=== PATIENT | male | born 1950 | race Caucasian/White ===

== ENCOUNTER → 2016-07-14 | Outpatient (CLI) | payer BC ==
[~2016-07-14] MED LIST: ASPI-435 PO; CHOL2000 PO; DOCU100C31 PO; INSDGI SC; LISI-461 PO; MAGN400T6 PO; METF-384 PO; METO25TA56 PO; MULT-513 PO; OXYC-409 PO; PRAM0.129 PO; PRT/20 PO; SENN-61 PO; SIMV20TA5 PO; TRAM-453 PO; WARF1TAB6 PO; WARF5TAB7 PO
[2016-07-14 16:38] LABS: BASO % 0.3 %; BASO ABS # 0.01 K/uL (0-0.2); COMPLETE YES; HEMATOCRIT 37.6 % (42-52); LYMPH % 18.3 %; LYMPH ABS # 0.71 K/uL (1.2-3.4); MEAN PLATELET VOLUME 9.8 fL (7.4-10.4); MONO % 13.6 %; NEUT % 67.8 %; PLATELET COUNT 174 K/uL (130-400); RED BLOOD COUNT 4.13 M/uL (4.7-6.1); WHITE BLOOD COUNT 3.89 K/uL (4.8-10.8)
--- NOTE | 2016-07-14 16:44 | DIAGNOSTIC IMAGING REPORT ---
CHEST 2 VIEWS ROUTINE HISTORY: R05 [id number] Shortness of [id number] COMPARISON: Chest 03/25/2014. FINDINGS: There is a left-sided dual-chamber pacemaker. Post anatomy changes and 2 cardiac valve prostheses are noted. The heart is stable in size. The lungs are clear. No pleural effusions. No pneumothorax. IMPRESSION: No acute process. Electronically signed by: Shmuel Jasso M.D. 07/14/2016 4:42 PM Dictated Date/Time: 07/14/2016 4:41 PM
[2016-07-14 17:02] LABS: BLOOD UREA NITROGEN 18 mg/dl (7-18); BUN/CREATININE RATIO 16.5 (10-20); CARBON DIOXIDE 31 mmol/L (21-32); CHLORIDE 95 mmol/L (98-107); GLUCOSE 144 mg/dl (70-99); POTASSIUM 4.2 mmol/L (3.5-5.1); SODIUM 135 mmol/L (136-145)
== END ==
LOC: C.RAD1850 15:40
PROVIDERS: ATTEND Nurse Practitioner Family
DX: R05 Cough (principal); R06.02 Shortness of breath

== ENCOUNTER → 2017-06-28 | Outpatient (CLI) | payer BC ==
--- NOTE | 2017-06-28 12:22 | DIAGNOSTIC IMAGING REPORT ---
CHEST 2 VIEWS ROUTINE CLINICAL HISTORY: R05 [id number] Productive cough COMPARISON STUDY: 07/14/2016 FINDINGS: There are postsurgical changes of midline sternotomy and by valvular replacement. There is a left subclavian dual-chamber central venous pacemaker present. There is no failure. There is no focal pulmonary consolidation. There are no pleural effusions.[ IMPRESSION: No active disease in the chest. Electronically signed by: Rao Arreola M.D. 06/28/2017 12:21 PM Dictated Date/Time: 06/28/2017 12:20 PM
== END | disposition home or self-care (01) ==
LOC: C.RADBC 12:08
PROVIDERS: ATTEND Nurse Practitioner Adult Health
DX: R05 Cough (principal); R06.2 Wheezing

== ENCOUNTER → 2017-07-05 | Outpatient (CLI) | payer BC ==
[2017-07-05 12:19] LABS: BASO % 0.5 %; BASO ABS # 0.03 K/uL (0-0.2); EOS % 1.9 %; EOS ABS # 0.12 K/uL (0-0.5); HEMATOCRIT 37.1 % (42-52); HEMOGLOBIN 12.8 g/dL (14.0-18.0); IG# 0.05 K/uL (0.00-0.02); LYMPH % 27.8 %; LYMPH ABS # 1.76 K/uL (1.2-3.4); MEAN CELL VOLUME 92.5 fL (80-100); MEAN CORPUSCULAR HEMOGLOBIN 31.9 pg (25-34); MEAN CORPUSCULAR HGB CONC 34.5 g/dl (32-36); MEAN PLATELET VOLUME 9.6 fL (7.4-10.4); MONO % 8.9 %; MONO ABS # 0.56 K/uL (0.11-0.59); NEUT % 60.1 %; PLATELET COUNT 240 K/uL (130-400); RED CELL DISTRIBUTION WIDTH CV 13.9 % (11.5-14.5); RED CELL DISTRIBUTION WIDTH SD 45.9 fL (36.4-46.3); WHITE BLOOD COUNT 6.32 K/uL (4.8-10.8)
[2017-07-05 12:28] LABS: HEMOGLOBIN A1C 6.5 % (4.5-5.6)
[2017-07-05 13:40] LABS: ALBUMIN 3.8 gm/dl (3.4-5.0); ALT/SGPT 39 U/L (12-78); BLOOD UREA NITROGEN 15 mg/dl (7-18); CALCIUM 9.1 mg/dl (8.5-10.1); CARBON DIOXIDE 30 mmol/L (21-32); CREATININE 0.84 mg/dl (0.60-1.40); GLUCOSE 141 mg/dl (70-99); POTASSIUM 3.9 mmol/L (3.5-5.1); SODIUM 136 mmol/L (136-145)
[2017-07-05 13:43] LABS: ALKALINE PHOSPHATASE 47 U/L (45-117); AST/SGOT 52 U/L (15-37); TOTAL PROTEIN 6.8 gm/dl (6.4-8.2)
== END | disposition home or self-care (01) ==
LOC: C.LAB1850 09:59
PROVIDERS: ATTEND Nurse Practitioner Family
DX: D64.9 Anemia, unspecified (principal); E11.9 Type 2 diabetes mellitus without complications

== ENCOUNTER → 2018-01-22 | Outpatient (CLI) | payer BC ==
[~2018-01-22] MED LIST changes: +PRAM0.1212 PO; -PRAM0.129 PO
[2018-01-22 09:49] LABS: BASO % 0.2 %; BASO ABS # 0.01 K/uL (0-0.2); EOS % 2.8 %; EOS ABS # 0.12 K/uL (0-0.5); HEMATOCRIT 39.3 % (42-52); HEMOGLOBIN 13.2 g/dL (14.0-18.0); LYMPH % 31.9 %; LYMPH ABS # 1.39 K/uL (1.2-3.4); MEAN CELL VOLUME 93.1 fL (80-100); MEAN CORPUSCULAR HEMOGLOBIN 31.3 pg (25-34); MEAN CORPUSCULAR HGB CONC 33.6 g/dl (32-36); MEAN PLATELET VOLUME 10.7 fL (7.4-10.4); MONO ABS # 0.35 K/uL (0.11-0.59); NEUT % 57.1 %; NEUT ABS # 2.49 K/uL (1.4-6.5); PLATELET COUNT 187 K/uL (130-400); RED CELL DISTRIBUTION WIDTH CV 13.5 % (11.5-14.5); RED CELL DISTRIBUTION WIDTH SD 45.9 fL (36.4-46.3); WHITE BLOOD COUNT 4.36 K/uL (4.8-10.8)
[2018-01-22 10:15] LABS: BLOOD UREA NITROGEN 18 mg/dl (7-18); CREATININE 0.94 mg/dl (0.60-1.40); GLUCOSE 122 mg/dl (70-99)
[2018-01-22 10:16] LABS: ALBUMIN 3.9 gm/dl (3.4-5.0); ALKALINE PHOSPHATASE 40 U/L (45-117); ALT/SGPT 31 U/L (12-78); AST/SGOT 36 U/L (15-37); CALCIUM 8.5 mg/dl (8.5-10.1); CARBON DIOXIDE 30 mmol/L (21-32); CHOLESTEROL 138 mg/dl (0-200); LDL CHOLESTEROL CALCULATED 47 mg/dl; POTASSIUM 4.3 mmol/L (3.5-5.1); SODIUM 136 mmol/L (136-145); TOTAL PROTEIN 6.9 gm/dl (6.4-8.2)
== END | disposition home or self-care (01) ==
LOC: C.LAB1850 08:04
PROVIDERS: ATTEND Internal Medicine Interventional Cardiology
DX: I10 Essential (primary) hypertension (principal); E78.00 Pure hypercholesterolemia, unspecified; D50.9 Iron deficiency anemia, unspecified

== ENCOUNTER 2021-05-31 15:28 | Inpatient (IN) ==
[2021-05-31 17:27] LABS: Appearance Urine Clear (Clear); Basophils # (auto) 0.01 K/uL (0-0.2); Basophils % (auto) 0.1 %; Blood Urine Negative (Negative); Color Urine Dark Yellow; Eosinophils # (auto) 0.01 K/uL (0-0.5); Eosinophils % (auto) 0.1 %; Glucose Urine UA Negative (Negative); Hematocrit (blood only) 39.2 % (42-52); Hemoglobin 13.4 g/dL (14.0-18.0); Immature Granulocytes # (auto) 0.02 K/uL (0.00-0.02); Immature Granulocytes % (auto) 0.2 %; Ketones Urine Trace (Negative); Leukocyte Esterase Urine Negative (Negative); Lymphocytes # (auto) 1.12 K/uL (1.2-3.4); Mean Corpuscular Hemoglobin 30.8 pg (25-34); Mean Corpuscular Hgb Conc 34.2 g/dL (32-36); Mean Corpuscular Volume 90.1 fL (80-100); Monocytes # (auto) 0.04 K/uL (0.11-0.59); Monocytes % (auto) 0.4 %; Neutrophils # (auto) 9.95 K/uL (1.4-6.5); Neutrophils % (auto) 89.2 %; Nitrite Urine Negative (Negative); Platelet Count 256 K/uL (130-400); Protein Urine Negative (Negative); RDW Coefficient of Variation 13.3 % (11.5-14.5); RDW Standard Deviation 43.9 fL (36.4-46.3); Red Blood Count 4.35 M/uL (4.7-6.1); Specific Gravity Urine 1.014 (1.000-1.030); Urobilinogen Urine Negative (Negative); White Blood Count 11.15 K/uL (4.8-10.8)
[2021-05-31 17:30] LABS: Bilirubin Urine 2+ (Negative)
[2021-05-31 17:47] LABS: Partial Thromboplastin Ratio 1.8; Prothrombin Time > 90.0 Seconds (9.0-12.0)
[2021-05-31 17:50] LABS: INR > 10.7 (0.9-1.1); Partial Thromboplastin Time 47.3 Seconds (21.0-31.0)
[2021-05-31 17:55] LABS: Albumin Globulin Ratio 0.7 (0.9-2); Albumin Level 3.3 gm/dl (3.4-5.0); BUN Creatinine Ratio 17.1 (10-20); Bilirubin,Total 6.7 mg/dl (0.2-1); Calcium 9.4 mg/dl (8.5-10.1); Creatinine Clr Calc Pharmacy 68.8 ml/min; Est GFR (African American) 77.3 ml/min; Est GFR (Non-African American) 66.7 ml/min; Globulin 4.4 gm/dl (2.5-4.0); Potassium 3.9 mmol/L (3.5-5.1); Total Protein 7.7 gm/dl (6.4-8.2); Troponin I 0.172 ng/ml (0-0.045)
[2021-05-31] MEDS ORDERED: MoRPHine SULFATE 4 MG/ML 1 ML CARP\\VIAL IV STA (18:02)
[2021-05-31] MEDS ORDERED: SODIUM CHLORIDE 0.9% 1000ML 1,000 ML IV ONE (18:02)
[2021-05-31] MEDS ORDERED: ONDANSETRON INJ 2 MG/ML 2 ML VIAL IV STA (18:02)
[2021-05-31] MEDS ORDERED: OPTIRAY 320 100ml IV ONE (18:12)
[2021-05-31] MEDS ORDERED: SODIUM CHLORIDE 0.9% 1000ML 1,000 ML IV SCH (18:15)
--- NOTE | 2021-05-31 18:25 | CT Scan Report ---
ABDOMEN AND PELVIS CT WITH IV CONTRAST CT DOSE: 736.30 mGy.cm HISTORY: Elevated bilirubin. Right upper quadrant pain. TECHNIQUE: Multiaxial CT images of the abdomen and pelvis were performed following the use of intrave nous contrast. A dose lowering technique was utilized adhering to the principles of ALARA. COMPARISON STUDY: None. FINDINGS: There is a 1 mm nodule within the left lower lobe on image 5. This is of doubtful clinical significance. Poststernotomy changes. No fractures identified. Dense mitral annular calcifications wi th a mitral ring. Pacemaker wires are partially visualized. No hepatic or splenic masses. The adrenal glands unremarkable. There is a 7 mm exophytic hypodense lesion within the right kidney. This is sec ondary to small to characterize. Normal left kidney. No hydronephrosis. The main portal vein is paten t. Mild central intrahepatic bile duct dilatation. Common bile duct is also mildly distended up to 1 cm. There is a 7 mm stone at the distal common bile duct. The main pancreatic duct is normal in calib er. The gallbladder is distended. There is a thickened gallbladder wall with a large stone at the gal lbladder neck measuring 4 cm. There is mild pericholecystic inflammatory change. This consistent with an acute cholecystitis. There is also mild peripancreatic edema consistent with an acute pancreatiti s. No retroperitoneal lymphadenopathy. Mild calcified plaque within the normal caliber abdominal aort a. Mild bladder wall thickening. No pelvic free fluid. A few colonic diverticula. No evidence for acu te diverticulitis. No bowel wall thickening or obstruction. Normal appendix. IMPRESSION: 1. There is a 7 mm stone at the distal common bile duct resulting in mild bile duct dilatation. There is also distended gallbladder with a thickened wall and mild pericholecystic inflammatory change. Th erefore, this is consistent with an acute cholecystitis. Surgical consultation recommended. 2. There is also mild peripancreatic inflammatory change consistent with an acute pancreatitis. This is likely due to the common bile duct stone. 3. Cholelithiasis. 4. No bowel wall thickening or obstruction. 5. Mild bladder wall thickening. This could be due to a cystitis. Recommend correlation with urinalys is. ACT 112: Negative or not required by law. Electronically signed by: Shmuel Jasso M.D. 05/31/2021 6:24 PM
[2021-05-31] MEDS ORDERED: PHYTONADIONE 5 MG in SODIUM CHLORIDE 0.9% 50 ML IV ONE (18:35)
--- NOTE | 2021-05-31 18:53 | Surgery Consultation ---
Date of Consultation May 31, 2021 Assessment & Plan (1) Common bile duct obstruction: Patient with common bile duct obstruction from a 7 mm stone and pancreatitis with significantly elevated lipase He has gallbladder edema which likely does come from his common duct obstruction but also has a large stone Severely elevated PT/INR secondary to Coumadin and common duct obstruction Patient will be admitted and placed on IV antibiotics, likely stopping his anticoagulation temporarily He will require GI evaluation and likely ERCP At some point we will proceed with laparoscopic cholecystectomy History of Present Illness History of Present Illness 70-year-old male presenting the emergency room with very abnormal liver function studies who has had recent fever and chills and dark urine He has a very elevated total bilirubin of 6.7 lipase 19,425 severely elevated PT/INR CT scan shows common bile duct obstruction with a stone gallbladder distention with some edema large stone in the gallbladder History of pacemaker A. fib hypertension diabetes on Coumadin Allergies Allergy/AdvReac Type Severity Reaction Status Date / Time No Known Drug Allergies Allergy Verified 05/31/21 18:32 Home Medications Medication Instructions Recorded Confirmed Type acetaminophen 325 mg tablet 325 - 650 mg PO Q6H PRN tab 02/19/19 05/31/21 History ascorbic acid (vitamin C) 500 mg 500 mg PO BID #180 tab 02/19/19 05/31/21 History tablet ferrous sulfate 325 mg (65 mg 325 mg PO BID tab 02/19/19 05/31/21 History iron) tablet insulin syringe-needle U-100 0.3 #10 ea 03/10/19 05/30/21 History mL 31 gauge x 5/16" (UltiCare) amoxicillin 500 mg capsule 500 mg PO .COMPLEX PRN cap 07/22/19 05/31/21 History multivitamin (Multiple Vitamins) 1 tab PO QAM 07/22/19 05/31/21 History metoprolol tartrate 25 mg tablet 25 mg PO BID #180 tab 10/07/20 05/31/21 Rx flash glucose scanning reader #1 ea 11/23/20 05/30/21 Rx (FreeStyle Ulises 14 Day [place]) blood sugar diagnostic (TrackIFTouch #100 ea 12/30/20 05/30/21 Rx Ultra Test) blood-glucose meter (TrackIFTouch #1 ea 12/30/20 05/30/21 Rx Ultra2 Meter) lancets 30 gauge (OneTouch Delica #100 ea 12/31/20 05/30/21 Rx Lancets) warfarin 5 mg tablet 7.5 mg PO UD 01/05/21 05/31/21 History pen needle, diabetic 32 gauge x #200 ea 02/07/21 05/30/21 Rx 1/4" (UltiCare Pen Needle) pantoprazole 20 mg tablet,delayed 20 mg PO QAM #90 tab 03/09/21 05/31/21 Rx release dulaglutide 0.75 mg/0.5 mL 0.75 mg SQ WK #6 ml 03/18/21 05/31/21 Rx subcutaneous pen injector (Trulicity) magnesium oxide 400 mg (241.3 mg 400 mg PO BID #180 tab 03/21/21 05/31/21 Rx magnesium) tablet rosuvastatin 10 mg tablet 10 mg PO HS #90 tab 03/21/21 05/31/21 Rx flash glucose sensor (FreeStyle #1 ea 04/06/21 05/30/21 Rx Ulises 14 Day Sensor) cholecalciferol (vitamin D3) 50 2,000 unit PO QAM #90 tab 04/08/21 05/31/21 Rx mcg (2,000 unit) tablet lisinopril 20 mg tablet 20 mg PO BID #180 tab 04/08/21 05/31/21 Rx ketoconazole 2 % topical cream 1 applic TOP BID PRN #60 gm 05/17/21 05/31/21 Rx insulin glargine 100 unit/mL (3 30 unit SQ DAILY #15 ml 05/30/21 05/31/21 Rx mL) subcutaneous pen (Lantus Solostar U-100 Insulin) aspirin 81 mg tablet,delayed 81 mg PO DAILY 05/31/21 05/31/21 History release bromfenac 0.09 % eye drops 0 drp OPHTHALMIC (EYE) DAILY 05/31/21 05/31/21 History prednisolone acetate 1 % eye 0 drp OPHTHALMIC (EYE) DAILY 05/31/21 05/31/21 Hi story drops,suspension Patient History Medical History (Updated 05/31/21 @ 18:51 by Waldo Shell MD, FACS) Anticoagulant long-term use Anxiety Coronary arteriosclerosis Difficult intravenous access DM type 2 (diabetes mellitus, type 2) History of gout History of stroke 2 strokes during open heart surgery -- [facility] 2013; no residual effects HLD (hyperlipidemia) Hypertension Iron deficiency anemia Osteoarthritis Pacemaker 2013 [facility] - last checked jun or jul 2020 - bradycardia - follows with Dr. Marie Paroxysmal atrial fibrillation pt denies Restless leg syndrome Rheumatic heart disease Vitamin D deficiency Surgical History (Updated 05/30/21 @ 07:54 by Nia Purvis MD) Aortic valve replaced History of cardiac catheterization x 4 - no stents (most recent cath 2013 prior to valve replavcement surgery) History of carpal tunnel surgery of left wrist History of carpal tunnel surgery of right wrist History of colonoscopy History of esophagogastroduodenoscopy (EGD) History of open heart surgery 2013 History of resection of rib History of right cataract surgery Mechanical heart valve present Mitral valve replaced 2013 S/P trigger finger release mult Family History Mother Diabetes Lung cancer Hypertension Unknown Myocardial infarction Brother Myocardial infarction Grandfather (Maternal) Myocardial infarction Grandmother Diabetes Hypertension Father Stroke Other No family history of adverse response to anesthesia Denies family history of Ovarian cancer Prostate cancer Breast cancer Colorectal cancer Social History Smoking Status: Former smoker Tobacco Type: Cigarettes Age Started Using Tobacco: 16; Age Quit Using Tobacco: 33; packs per day: 1; Years Smoked: 17; Second Hand Exposure: No; Hx Alcohol Use: Yes Alcohol type: beer and hard liquor Alcohol Intake Frequency: 4 or More x per/Week Hx Substance Use: No Preferred Language: Scottish Communication Ability: Effective Visual Impairment: No Limitations Hearing Ability: Normal Bail Bond Agent Required: No Beliefs That Will Affect Care: None marital status: Current Living Situation: Spouse current occupational status: retired Feels Safe at Home: Yes Childhood Exposure to Second-Hand Smoke: Yes Dental Care, Regularly: Yes Physical Activity Frequency: 3-4 Times per Week Seatbelt Use: always Sunscreen Use: Yes Assistive Devices: Cane and Glasses Review of Systems Review of Systems: All systems reviewed & are unremarkable except as noted in HPI & below Physical Exam Physical Exam: Patient is awake and alert he is in no distress his affect is normal Constitutional: well developed and well nourished; no acute distress Eyes: + anicteric sclerae Respiratory: normal respiratory effort; no respiratory distress Cardiovascular: Rate/Rhythm: + irregularly irregular Chest (Breasts): Chest: + pacemaker Gastrointestinal (Abdomen): Inspection/Auscultation: + abdomen distended Mild discomfort to palpation Musculoskeletal: Head/Neck/Chest: head atraumatic Skin: no rashes, warm and dry Neurologic: awake Psychiatric: Orientation: alert Results & Data ([facility]) Vital Signs (Past 12 Hours) Vital Signs Temp Pulse Pulse Resp BP BP Pulse Ox 05/31/21 18:22 72 18 129/72 96 05/31/21 15:45 37.3 C 75 16 153/80 H 98 Laboratory Results I did review his laboratories Diagnostic Findings I did review his CAT scan PG Care Time/CCT Total # of Minutes Spent Total Time Spent with Patient: Total time spent is greater than 50% in coordination of care (as documented) at patient's floor/unit and/or counseling patient: Coding Level of Care Code 96144 Office/Outpt Visit, New Diagnoses Common bile duct obstruction K83.1
[2021-05-31] MEDS ORDERED: PIPERACILLIN/TAZOBACTAM 4.5 GM/120 ML BAG IV ONE (19:03)
[2021-05-31] MEDS ORDERED: PIPERACILL/TAZOBAC CONSULT ACTIVE PRN ×2 (19:03→23:50)
--- NOTE | 2021-05-31 19:03 | Emergency Department Note ---
History of Present Illness General Chief complaint: Abnormal Labs/Diagnostic Testing Stated complaint: Abnormal Labs Time Seen by Provider: 05/31/21 17:58 History of Present Illness Provider complaint: Abdominal pain Onset (ago): week(s) 1 Location: abdomen Radiation: non-radiation Severity: moderate Pain Consistency: + intermittent Maximum Pain Intensity: 6 Current Pain Intensity: 3 Quality: + stabbing, + aching, + sharp and + dull Relieved By: + none Exacerbated By: + none Associated symptoms: + nausea/vomiting; no fever/chills, no headaches or no shortness of breath 70-year-old male presents emergency department for abdominal pain. Patient symptoms are gone on for the last week. Patient denies any vomiting. He does report nausea. Patient also reports diarrhea. No melena or hematochezia. No fevers. Patient denies any falls. Patient is on Coumadin. Patient states he saw his PCP yesterday who did some blood work and told him to be referred to the emergency department due to the abnormal blood work. Home Medications Medication Instructions Recorded Confirmed Type acetaminophen 325 mg tablet 325 - 650 mg PO Q6H PRN tab 02/19/19 05/31/21 History ascorbic acid (vitamin C) 500 mg 500 mg PO BID #180 tab 02/19/19 05/31/21 Hist ory tablet ferrous sulfate 325 mg (65 mg 325 mg PO BID tab 02/19/19 05/31/21 History iron) tablet insulin syringe-needle U-100 0.3 #10 ea 03/10/19 05/30/21 History mL 31 gauge x 5/16" (UltiCare) amoxicillin 500 mg capsule 500 mg PO .COMPLEX PRN cap 07/22/19 05/31/21 History multivitamin (Multiple Vitamins) 1 tab PO QAM 07/22/19 05/31/21 History metoprolol tartrate 25 mg tablet 25 mg PO BID #180 tab 10/07/20 05/31/21 Rx flash glucose scanning reader #1 ea 11/23/20 05/30/21 Rx (FreeStyle Ulises 14 Day Townsend) blood sugar diagnostic (A-STARuch #100 ea 12/30/20 05/30/21 Rx Ultra Test) blood-glucose meter (Service2MediaTouch #1 ea 12/30/20 05/30/21 Rx Ultra2 Meter) lancets 30 gauge (OneTouch Delica #100 ea 12/31/20 05/30/21 Rx Lancets) warfarin 5 mg tablet 7.5 mg PO UD 01/05/21 05/31/21 History pen needle, diabetic 32 gauge x #200 ea 02/07/21 05/30/21 Rx 1/4" (UltiCare Pen Needle) pantoprazole 20 mg tablet,delayed 20 mg PO QAM #90 tab 03/09/21 05/31/21 Rx release dulaglutide 0.75 mg/0.5 mL 0.75 mg SQ WK #6 ml 03/18/21 05/31/21 Rx subcutaneous pen injector (Trulicity) magnesium oxide 400 mg (241.3 mg 400 mg PO BID #180 tab 03/21/21 05/31/21 Rx magnesium) tablet rosuvastatin 10 mg tablet 10 mg PO HS #90 tab 03/21/21 05/31/21 Rx flash glucose sensor (FreeStyle #1 ea 04/06/21 05/30/21 Rx Ulises 14 Day Sensor) cholecalciferol (vitamin D3) 50 2,000 unit PO QAM #90 tab 04/08/21 05/31/21 Rx mcg (2,000 unit) tablet lisinopril 20 mg tablet 20 mg PO BID #180 tab 04/08/21 05/31/21 Rx ketoconazole 2 % topical cream 1 applic TOP BID PRN #60 gm 05/17/21 05/31/21 Rx insulin glargine 100 unit/mL (3 30 unit SQ DAILY #15 ml 05/30/21 05/31/21 Rx mL) subcutaneous pen (Lantus Solostar U-100 Insulin) aspirin 81 mg tablet,delayed 81 mg PO DAILY 05/31/21 05/31/21 History release bromfenac 0.09 % eye drops 0 drp OPHTHALMIC (EYE) DAILY 05/31/21 05/31/21 History prednisolone acetate 1 % eye 0 drp OPHTHALMIC (EYE) DAILY 05/31/21 05/31/21 History drops,suspension Allergies Allergy/AdvReac Type Severity Reaction Status Date / Time No Known Drug Allergies Allergy Verified 05/31/21 18:32 Past Med/Surg History Medical History Anticoagulant long-term use Anxiety Coronary arteriosclerosis Difficult intravenous access DM type 2 (diabetes mellitus, type 2) History of gout History of stroke 2 strokes during open heart surgery -- [facility] 2013; no residual effects HLD (hyperlipidemia) Hypertension Iron deficiency anemia Osteoarthritis Pacemaker 2013 [facility] - last checked jun or jul 2020 - bradycardia - follows with Dr. Marie Paroxysmal atrial fibrillation pt denies Restless leg syndrome Rheumatic heart disease Vitamin D deficiency Surgical History Aortic valve replaced History of cardiac catheterization x 4 - no stents (most recent cath 2013 prior to valve replavcement surgery) History of carpal tunnel surgery of left wrist History of carpal tunnel surgery of right wrist History of colonoscopy History of esophagogastroduodenoscopy (EGD) History of open heart surgery 2013 History of resection of rib History of right cataract surgery Mechanical heart valve present Mitral valve replaced 2013 S/P trigger finger release mult Family History Mother Diabetes Lung cancer Hypertension Unknown Myocardial infarction Brother Myocardial infarction Grandfather (Maternal) Myocardial infarction Grandmother Diabetes Hypertension Father Stroke Other No family history of adverse response to anesthesia Denies family history of Ovarian cancer Prostate cancer Breast cancer Colorectal cancer Social History Smoking Status: Former smoker Tobacco Type: Cigarettes Age Started Using Tobacco: 16; Age Quit Using Tobacco: 33; packs per day: 1; Years Smoked: 17; Second Hand Exposure: No; Hx Alcohol Use: Yes Alcohol type: beer and hard liquor Alcohol Intake Frequency: 4 or More x per/Week Hx Substance Use: No Preferred Language: Scottish Communication Ability: Effective Visual Impairment: No Limitations Hearing Ability: Normal Hvac Mechanic Required: No Beliefs That Will Affect Care: None marital status: Current Living Situation: Spouse current occupational status: retired Feels Safe at Home: Yes Childhood Exposure to Second-Hand Smoke: Yes Dental Care, Regularly: Yes Physical Activity Frequency: 3-4 Times per Week Seatbelt Use: always Sunscreen Use: Yes Assistive Devices: Cane and Glasses Review of Systems A total of 10 systems reviewed and were otherwise negative Physical Exam Vital Signs Vital Signs - 24 hr 05/31/21 15:45 05/31/21 18:22 Temperature 37.3 C Temperature Source Temporal Artery Scan Pulse Rate 75 Pulse Rate [Apical] 72 Pulse Rhythm [Apical] Regular Pulse Strength [Apical] Normal Respiratory Rate 16 18 Respiratory Effort / Characteristics Non-Labored Non-Labored Spontaneous Respiratory Depth Normal Normal Blood Pressure 153/80 H Blood Pressure [Right Arm] 129/72 Blood Pressure Mean 104 Blood Pressure Mean [Right Arm] 91 Pulse Oximetry 98 96 Oxygen Delivery Method Room Air Sepsis Recent Fever Within 48 Hours No Sepsis New/Unexplained Change in Mental Status No Sepsis Action Taken by Nursing No Action Required Physical Exam HENT: Exam performed. - Head: Normocephalic and atraumatic. - Right Ear: External ear normal. No mastoid tenderness. - Left Ear: External ear normal. No mastoid tenderness. - Mouth/Throat: The oropharynx is clear and moist. No trismus in the jaw. No dental abscesses or uvula swelling. No oropharyngeal exudate or tonsillar abscesses. EYES: Conjunctivae and EOM are normal. Pupils are equal, round, and reactive to light. Right eye exhibits no discharge. Left eye exhibits no discharge. scleral icterus. NECK: Normal range of motion. Neck supple. No JVD present. No spinous process tenderness present. No carotid bruit present. No rigidity. No tracheal deviation and normal range of motion present. No Brudzinski's sign and no Kernig's sign noted. CV: Normal rate, regular rhythm, normal heart sounds and intact distal pulses. There is no peripheral edema. Palpable radial pulses bue. PULM/CHEST: Effort normal and breath sounds normal. No respiratory distress. No stridor. He has no wheezes. He has no rales. - Chest Wall: He exhibits no tenderness. ABD: The abdomen is soft. Bowel sounds are normal. He has no distension. No mass is present. There is tenderness to palpation of the epigastric area There is no rebound, no guarding, no Godoy's sign and no tenderness at McBurney's point. Rovsig negative. MUSC/SKEL: Normal range of motion. There is no peripheral edema, tenderness or deformity. LYMPH: No cervical adenopathy. NEURO: He is alert and oriented to person, place, and time. He has normal strength. No cranial nerve deficit or sensory deficit. Coordination and gait n ormal. GCS eye subscore is 4. GCS verbal subscore is 5. GCS motor subscore is 6. Cerebellar tests wnl. SKIN: Jaundiced. PSYCH: He has a normal mood and affect. Behavior is normal. Judgment and thought content normal. Course Course 1757: The patient was evaluated in room B3. A complete history and physical exam was performed Cardiac monitoring: An order was placed for continuous cardiac monitoring. The monitor shows a rate of 80 with paced rhythm Patient was seen during a time of extreme volume and extreme acuity during the COVID-19 pandemic. Nursing triage protocols were initiated and labs were drawn by protocol in the triage area. 1844: Vital signs stable. Labs show a white blood cell count of 11.15. Hemoglob in 13.4. INR greater than 10.7. Vitamin K 5 mg IV ordered for the patient. Sodium 130. AST/ALT 58/82 respectively. Alkaline phosphatase 285. Troponin 0 0.172. Patient denies chest pain at this time. Lipase 19,425. Urinalysis shows 2+ bilirubin. Imaging shows a 7 mm stone at the CBD resulting in mild bile duct dilatation and gallbladder thickened with pericholecystic inflammatory change consistent with acute cholecystitis. There is also acute pancreatitis likely due to CBD stone. Cholelithiasis. Discussed the case with general surgery Dr. Shell who agrees to be on consult and recommends that the patient be admitted to medicine with GI consult. Dr. [facility] hospitalist was made aware of the patient. Administered Medications Sodium Chloride (Nss 1000ml) 1,000 mls @ 999 mls/hr IV .Q1H1M ONE Stop: 05/31/21 19:02 Last Admin: 05/31/21 18:20 Dose: 999 mls/hr Documented by: [id number] Sodium Chloride (Nss 1000ml) 1,000 mls @ 80 mls/hr IV .[id number] NEIL Stop: 06/30/21 18:14 Last Admin: 05/31/21 18:21 Dose: 80 mls/hr Documented by: [id number] Phytonadione 5 mg/ Sodium (Chloride) 50.5 mls @ 101 mls/hr IV ONE ONE Stop: 05/31/21 19:04 Last Admin: 05/31/21 18:49 Dose: 101 mls/hr Documented by: [id number] Discontinued Medications Ioversol (Optiray 320 100ml) 94 ml IV ONCE ONE Stop: 05/31/21 18:13 Last Admin: 05/31/21 18:12 Dose: 94 ml Documented by: [id number] Morphine Sulfate (Morphine Sulfate 4 Mg/Ml 1 Ml Carp\\Vial) 4 mg IV NOW STA Stop: 05/31/21 18:03 Last Admin: 05/31/21 18:21 Dose: 4 mg Documented by: [id number] Ondansetron HCl (Ondansetron Inj 2 Mg/Ml 2 Ml Vial) 4 mg IV NOW STA Stop: 05/31/21 18:03 Last Admin: 05/31/21 18:21 Dose: 4 mg Documented by: [id number] Medical Decision Making Laboratory Data Result diagrams: 05/31/21 17:04 05/31/21 17:04 Lab Results 05/31/21 05/31/21 05/31/21 Range/Units 17:04 17:04 17:04 WBC 11.15 H (4.8-10.8) K/uL RBC 4.35 L (4.7-6.1) M/uL Hgb 13.4 L (14.0-18.0) g/dL Hct 39.2 L (42-52) % MCV 90.1 (80-100) fL MCH 30.8 (25-34) pg MCHC 34.2 (32-36) g/dL RDW Std Deviation 43.9 (36.4-46.3) fL RDW Coeff of Karan 13.3 (11.5-14.5) % Plt Count 256 (130-400) K/uL MPV 10.0 (7.4-10.4) fL Immature Gran % (Auto) 0.2 % Neut % (Auto) 89.2 % Lymph % (Auto) 10.0 % [place] % (Auto) 0.4 % Eos % (Auto) 0.1 % Baso % (Auto) 0.1 % Neut # (Auto) 9.95 H (1.4-6.5) K/uL Lymph # (Auto) 1.12 L (1.2-3.4) K/uL [place] # (Auto) 0.04 L (0.11-0.59) K/uL Eos # (Auto) 0.01 (0-0.5) K/uL Baso # (Auto) 0.01 (0-0.2) K/uL Immature Gran # (Auto) 0.02 (0.00-0.02) K/uL PT > 90.0 H (9.0-12.0) Seconds INR > 10.7 H* (0.9-1.1) APTT 47.3 H* (21.0-31.0) Seconds PTT Ratio 1.8 Sodium 130 L (136-145) mmol/L Potassium 3.9 (3.5-5.1) mmol/L Chloride 91 L (98-107) mmol/L Carbon Dioxide 27 (21-32) mmol/L Anion Gap 12.0 H (3-11) BUN 19 H (7-18) mg/dl Creatinine 1.12 (0.6-1.4) mg/dl Est Cr Clr Drug Dosing 68.8 ml/min Est GFR ( Amer) 77.3 ml/min Est GFR (Non-Af Amer) 66.7 ml/min BUN/Creatinine Ratio 17.1 (10-20) Glucose 250 H (70-99) mg/dl Calcium 9.4 (8.5-10.1) mg/dl Total Bilirubin 6.7 H (0.2-1) mg/dl AST 58 H (15-37) U/L ALT 82 H (12-78) Alkaline Phosphatase 285 H (45-117) U/L Troponin I 0.172 H* (0-0.045) ng/ml Total Protein 7.7 (6.4-8.2) gm/dl Albumin 3.3 L (3.4-5.0) gm/dl Globulin 4.4 H (2.5-4.0) gm/dl Albumin/Globulin Ratio 0.7 L (0.9-2) Lipase 41536 H (73-393) U/L Urine Color Urine Appearance (Clear) Urine pH (4.5-7.5) Ur Specific [place] (1.000-1.030) Urine Protein (Negative) Urine Glucose (UA) (Negative) Urine Ketones (Negative) Urine Blood (Negative) Urine Nitrite (Negative) Urine Bilirubin (Negative) Urine Urobilinogen (Negative) Ur Leukocyte Esterase (Negative) SARS-CoV-2, RNA, NAAT (NEGATIVE) 05/31/21 05/31/21 Range/Units 17:04 18:15 WBC (4.8-10.8) K/uL RBC (4.7-6.1) M/uL Hgb (14.0-18.0) g/dL Hct (42-52) % MCV (80-100) fL MCH (25-34) pg MCHC (32-36) g/dL RDW Std Deviation (36.4-46.3) fL RDW Coeff of Karan (11.5-14.5) % Plt Count (130-400) K/uL MPV (7.4-10.4) fL Immature Gran % (Auto) % Neut % (Auto) % Lymph % (Auto) % [place] % (Auto) % Eos % (Auto) % Baso % (Auto) % Neut # (Auto) (1.4-6.5) K/uL Lymph # (Auto) (1.2-3.4) K/uL [place] # (Auto) (0.11-0.59) K/uL Eos # (Auto) (0-0.5) K/uL Baso # (Auto) (0-0.2) K/uL Immature Gran # (Auto) (0.00-0.02) K/uL PT (9.0-12.0) Seconds INR (0.9-1.1) APTT (21.0-31.0) Seconds PTT Ratio Sodium (136-145) mmol/L Potassium (3.5-5.1) mmol/L Chloride (98-107) mmol/L Carbon Dioxide (21-32) mmol/L Anion Gap (3-11) BUN (7-18) mg/dl Creatinine (0.6-1.4) mg/dl Est Cr Clr Drug Dosing ml/min Est GFR ( Amer) ml/min Est GFR (Non-Af Amer) ml/min BUN/Creatinine Ratio (10-20) Glucose (70-99) mg/dl Calcium (8.5-10.1) mg/dl Total Bilirubin (0.2-1) mg/dl AST (15-37) U/L ALT (12-78) Alkaline Phosphatase (45-117) U/L Troponin I (0-0.045) ng/ml Total Protein (6.4-8.2) gm/dl Albumin (3.4-5.0) gm/dl Globulin (2.5-4.0) gm/dl Albumin/Globulin Ratio (0.9-2) Lipase (73-393) U/L Urine Color Dark Yellow Urine Appearance Clear (Clear) Urine pH 5.0 (4.5-7.5) Ur Specific [place] 1.014 (1.000-1.030) Urine Protein Negative (Negative) Urine Glucose (UA) Negative (Negative) Urine Ketones Trace H (Negative) Urine Blood Negative (Negative) Urine Nitrite Negative (Negative) Urine Bilirubin 2+ H (Negative) Urine Urobilinogen Negative (Negative) Ur Leukocyte Esterase Negative (Negative) SARS-CoV-2, RNA, NAAT NEGATIVE (NEGATIVE) Imaging Data Radiologist's Impression: Abdomen/Pelvis CT 05/31/21 16:[address] WITH IV CONTRAST CT DOSE: 736.30 mGy.cm HISTORY: Elevated bilirubin. Right upper quadrant pain. TECHNIQUE: Multiaxial CT images of the abdomen and pelvis were performed following the use of intravenous contrast. A dose lowering technique was utilized adhering to the principles of ALARA. COMPARISON STUDY: None. FINDINGS: There is a 1 mm nodule within the left lower lobe on image 5. This is of doubtful clinical significance. Poststernotomy changes. No fractures identified. Dense mitral annular calcifications with a mitral ring. Pacemaker wires are partially visualized. No hepatic or splenic masses. The adrenal glands unremarkable. There is a 7 mm exophytic hypodense lesion within the right kidney. This is secondary to small to characterize. Normal left kidney. No hydronephrosis. The main portal vein is patent. Mild central intrahepatic bile duct dilatation. Common bile duct is also mildly distended up to 1 cm. There is a 7 mm stone at the distal common bile duct. The main pancreatic duct is normal in caliber. The gallbladder is distended. There is a thickened gallbladder wall with a large stone at the gallbladder neck measuring 4 cm. There is mild pericholecystic inflammatory change. This consistent with an acute cholecystitis. There is also mild peripancreatic edema consistent with an acute pancreatitis. No retroperitoneal lymphadenopathy. Mild calcified plaque within the normal caliber abdominal aorta. Mild bladder wall thickening. No pelvic free fluid. A few colonic diverticula. No evidence for acute diverticulitis. No bowel wall thickening or obstruction. Normal appendix. IMPRESSION: 1. There is a 7 mm stone at the distal common bile duct resulting in mild bile duct dilatation. There is also distended gallbladder with a thickened wall and mild pericholecystic inflammatory change. Therefore, this is consistent with an acute cholecystitis. Surgical consultation recommended. 2. There is also mild peripancreatic inflammatory change consistent with an acute pancreatitis. This is likely due to the common bile duct stone. 3. Cholelithiasis. 4. No bowel wall thickening or obstruction. 5. Mild bladder wall thickening. This could be due to a cystitis. Recommend correlation with urinalysis. ACT 112: Negative or not required by law. Electronically signed by: Shmuel Jasso M.D. 05/31/2021 6:24 PM ECG Data Additional Comments: History ofEKG #1 at 1649: Paced rhythm with rate of 77. QRS 198 QTC 531. No ectopy. EKG #2 at 1841: Paced rhythm with a rate of 69. QRS 208 QTC 529. No ectopy. [facility] Narrative 1758: The patient was evaluated in room B3. A complete history and physical exam was performed Cardiac monitoring: An order was placed for continuous cardiac monitoring. The monitor shows a rate of 80 with paced rhythm Patient was seen during a time of extreme volume and extreme acuity during the COVID-19 pandemic. Nursing triage protocols were initiated and labs were drawn by protocol in the triage area. 1845: Vital signs stable. Labs show a white blood cell count of 11.15. Hemoglobin 13.4. INR greater than 10.7. Vitamin K 5 mg IV ordered for the patient. Sodium 130. AST/ALT 58/82 respectively. Alkaline phosphatase 285. Troponin 0 0.172. Patient denies chest pain at this time. Lipase 19,425. Urinalysis shows 2+ bilirubin. Imaging shows a 7 mm stone at the CBD resulting in mild bile duct dilatation and gallbladder thickened with pericholecystic inflammatory change consistent with acute cholecystitis. There is also acute pancreatitis likely due to CBD stone. Cholelithiasis. Discussed the case with general surgery Dr. Shell who agrees to be on consult and recommends that the patient be admitted to medicine with GI consult. Dr. [facility] hospitalist was made aware of the patient. Impression & Plan Choledocholithiasis, Acute cholecystitis, Acute gallstone pancreatitis Discharge Plan Visit Data Chief Complaint: Abnormal Labs/Diagnostic Testing Stated Complaint: Abnormal Labs Discharge Problem: Choledocholithiasis, Acute cholecystitis, Acute gallstone pancreatitis Patient Disposition: Admitted As Inpatient Forms Stand Alone Forms: [facility] Prescriptions Prescriptions: No Action metoprolol tartrate 25 mg tablet 25 mg PO BID Qty: 180 RF: 3 (DME) FreeStyle Ulises 14 Day Townsend Misc See Rx Instructions .MEDSUPPLY Qty: 1 RF: 0 (DME) OneTouch Ultra Test Strip See Rx Instructions .Route Qty: 100 RF: 5 (DME) blood-glucose meter [OneTouch Ultra2 Meter] Misc See Rx Instructions .Route Qty: 1 RF: 0 (DME) lancets [OneTouch Delica Lancets] 30 gauge misc See Dose Instructions .ROUTE .MEDSUPPLY Qty: 100 RF: 5 (DME) pen needle, diabetic [UltiCare Pen Needle] 32 gauge x 1/4" needle See Dose Instructions .ROUTE .MEDSUPPLY Qty: 200 RF: 1 pantoprazole 20 mg tablet,delayed release (DR/EC) 20 mg PO QAM Qty: 90 RF: 1 Trulicity 0.75 mg/0.5 mL pen injector 0.75 mg SQ WK Qty: 6 RF: 1 magnesium oxide 400 mg (241.3 mg magnesium) tablet 400 mg PO BID Qty: 180 RF: 1 rosuvastatin 10 mg tablet 10 mg PO HS Qty: 90 RF: 1 (DME) FreeStyle Ulises 14 Day Sensor Kit See Rx Instructions .MEDSUPPLY Qty: 1 RF: 0 lisinopril 20 mg tablet 20 mg PO BID Qty: 180 RF: 1 cholecalciferol (vitamin D3) 50 mcg (2,000 unit) tablet 2,000 unit PO QAM Qty: 90 RF: 0 ketoconazole 2 % cream 1 applic TOP BID PRN (Reason: rash) Qty: 60 RF: 5 Lantus Solostar U-100 Insulin 100 unit/mL (3 mL) insulin pen 30 unit SQ DAILY Qty: 15 RF: 1 ascorbic acid (vitamin C) 500 mg tablet 500 mg PO BID Qty: 180 RF: 0 ferrous sulfate 325 mg (65 mg iron) tablet 325 mg PO BID RF: 0 acetaminophen 325 mg tablet 325 - 650 mg PO Q6H PRN (Reason: fever or pain) RF: 0 (DME) insulin syringe-needle U-100 [UltiCare] 0.3 mL 31 gauge x 5/16" syringe See Dose Instructions .ROUTE .MEDSUPPLY Qty: 10 RF: 0 amoxicillin 500 mg capsule 500 mg PO .COMPLEX PRN (Reason: ud) RF: 0 multivitamin [Multiple Vitamins] Tablet 1 tab PO QAM RF: 0 aspirin 81 mg Tablet,Delayed Release (Dr/Ec) 81 mg PO DAILY RF: 0 prednisolone acetate 1 % drops,suspension 0 drp ophthalmic (eye) DAILY RF: 0 bromfenac 0.09 % drops 0 drp ophthalmic (eye) DAILY RF: 0 warfarin 5 mg tablet 7.5 mg PO UD RF: 0 Referrals Referrals: Efrain Arroyo III, CRNP [Primary Care Provider] -
--- NOTE | 2021-05-31 19:48 | History & Physical Report ---
Date of Service May 31, 2021 Assessment & Plan (1) Choledocholithiasis: Plan: -CBD stone confirmed on abdominal CT -Surgery and GI consultations made. Consults appreciated. -Pain currently controlled with morphine given in ED. Continue morphine q4h prn for pain -Zosyn given in ED, continue on admission -Given 1 liter NSS in ED, on maintenance IV NSS at 80 mls/hr -NPO after midnight -Follow CBC, CMP in AM (2) Acute cholecystitis: Plan: See above (3) Acute gallstone pancreatitis: Plan: See above (4) Common bile duct obstruction: Plan: See above (5) Elevated troponin: Plan: -Likely due to profusion mismatch -EKG showed ventricular paced rhythm -There were ST elevation and depression in various leads, however, Sgarbossa Criteria was 0 -Repeat serial trops q6h x3 (6) Supratherapeutic INR: Plan: -5 mg of Vitmamin K given in ED -Withhold Coumadin for likely procedure by surgery and GI -Recheck INR in AM (7) Diabetes mellitus: Plan: -Pt on Trulicity and Lantus 16 units AM, 14 units PM -Started lantus 8 units BID with SS -A1C in Novemeber was 6.8 -Repeat A1C in AM (8) Anticoagulant long-term use: Plan: -See Supratherapeutic INR above -Post procedures, INR goal is 2.5-3.5 due to valvular paroxysmal Afib (9) Hypertension: Plan: -Lisinopril held due to procedure tomorrow -Continue metoprolol (10) Paroxysmal atrial fibrillation: Plan: -Hold warfarin as above -Continue metoprolol -AICD in place Dispo: Med/Surg w/ Tele Diet: NPO DVT Prophylaxis: SCDs Code Status: Full History of Present Illness Chief Complaint: Abdominal Pain Primary Care Provider: Efrain Arroyo III, NKECHI Patient is a 70-year-old male with a past medical history of mechanical aortic and mitral heart valves, chronic anticoagulation on Coumadin, paroxysmal atrial fibrillation, AICD placed, DM 2, hypertension, and hyperlipidemia presenting to the hospital for the chief complaint of abdominal pain. Patient reports that for the past 1 to 2 weeks he has been having ongoing nausea, abdominal discomfort, fevers, chills, and acid reflux. Patient has gotten to the point that he was wrapping himself in a coat, under a blanket, and wear a scarf as his intermittent chills could not be relieved. He does report that he did have one episode 3 days ago of a fever of 103, however, this is the only time that he did have a fever. Patient has been taking upwards the 5 or 6 Tums to relieve acid reflux that he has been having. Patient thought that his symptoms were due to starting a long-acting nitro for angina a couple of weeks ago. For this reason patient had set up an appointment via telehealth with his primary care provider and had lab work ordered yesterday Lab work returned this morning and his primary care provider instructed him to go to the ED for abnormal labs. When the patient arrived he ultimately had an abdominal CT performed which revealed a stone blocking the common bile duct as well as pericholecystic inflammation suggestive of cholecystitis. Patient was placed on pain medication which has made him feel much better. Patient has no other complaints at this time. Allergies Allergy/AdvReac Type Severity Reaction Status Date / Time No Known Drug Allergies Allergy Verified 06/01/21 09:21 Home Medications Medication Instructions Recorded Confirmed Type acetaminophen 325 mg tablet 325 - 650 mg PO Q6H PRN tab 02/19/19 05/31/21 History ascorbic acid (vitamin C) 500 mg 500 mg PO BID #180 tab 02/19/19 05/31/21 History tablet ferrous sulfate 325 mg (65 mg 325 mg PO BID tab 02/19/19 05/31/21 History iron) tablet insulin syringe-needle U-100 0.3 #10 ea 03/10/19 05/30/21 History mL 31 gauge x 5/16" (UltiCare) amoxicillin 500 mg capsule 500 mg PO .COMPLEX PRN cap 07/22/19 05/31/21 History multivitamin (Multiple Vitamins) 1 tab PO QAM 07/22/19 05/31/21 History metoprolol tartrate 25 mg tablet 25 mg PO BID #180 tab 10/07/20 05/31/21 Rx flash glucose scanning reader #1 ea 11/23/20 05/30/21 Rx (FreeStyle Ulises 14 Day [place]) blood sugar diagnostic (WaveConnexTouch #100 ea 12/30/20 05/30/21 Rx Ultra Test) blood-glucose meter (OneTouch #1 ea 12/30/20 05/30/21 Rx Ultra2 Meter) lancets 30 gauge (OneTouch Delica #100 ea 12/31/20 05/30/21 Rx Lancets) warfarin 5 mg tablet 7.5 mg PO UD 01/05/21 05/31/21 History pen needle, diabetic 32 gauge x #200 ea 02/07/21 05/30/21 Rx 1/4" (UltiCare Pen Needle) pantoprazole 20 mg tablet,delayed 20 mg PO QAM #90 tab 03/09/21 05/31/21 Rx release dulaglutide 0.75 mg/0.5 mL 0.75 mg SQ WK #6 ml 03/18/21 05/31/21 Rx subcutaneous pen injector (Trulicity) magnesium oxide 400 mg (241.3 mg 400 mg PO BID #180 tab 03/21/21 05/31/21 Rx magnesium) tablet rosuvastatin 10 mg tablet 10 mg PO HS #90 tab 03/21/21 05/31/21 Rx flash glucose sensor (FreeStyle #1 ea 04/06/21 05/30/21 Rx Ulises 14 Day Sensor) cholecalciferol (vitamin D3) 50 2,000 unit PO QAM #90 tab 04/08/21 05/31/21 Rx mcg (2,000 unit) tablet lisinopril 20 mg tablet 20 mg PO BID #180 tab 04/08/21 05/31/21 Rx ketoconazole 2 % topical cream 1 applic TOP BID PRN #60 gm 05/17/21 05/31/21 Rx insulin glargine 100 unit/mL (3 30 unit SQ DAILY #15 ml 05/30/21 05/31/21 Rx mL) subcutaneous pen (Lantus Solostar U-100 Insulin) aspirin 81 mg tablet,delayed 81 mg PO DAILY 05/31/21 05/31/21 History release bromfenac 0.09 % eye drops 0 drp OPHTHALMIC (EYE) DAILY 05/31/21 05/31/21 History prednisolone acetate 1 % eye 0 drp OPHTHALMIC (EYE) DAILY 05/31/21 05/31/21 History drops,suspension Past Med/Surg History Medical History Anticoagulant long-term use Anxiety Coronary arteriosclerosis Difficult intravenous access DM type 2 (diabetes mellitus, type 2) History of gout History of stroke 2 strokes during open heart surgery -- [facility] 2013; no residual effects HLD (hyperlipidemia) Hypertension Iron deficiency anemia Osteoarthritis Pacemaker 2013 [facility] - last checked jun or jul 2020 - bradycardia - follows with Dr. Marie Paroxysmal atrial fibrillation pt denies Restless leg syndrome Rheumatic heart disease Vitamin D deficiency Surgical History Aortic valve replaced History of cardiac catheterization x 4 - no stents (most recent cath 2013 prior to valve replavcement surgery) History of carpal tunnel surgery of left wrist History of carpal tunnel surgery of right wrist History of colonoscopy History of esophagogastroduodenoscopy (EGD) History of open heart surgery 2013 History of resection of rib History of right cataract surgery Mechanical heart valve present Mitral valve replaced 2013 S/P trigger finger release mult Family History Mother Diabetes Lung cancer Hypertension Unknown Myocardial infarction Brother Myocardial infarction Grandfather (Maternal) Myocardial infarction Grandmother Diabetes Hypertension Father Stroke Other No family history of adverse response to anesthesia Denies family history of Ovarian cancer Prostate cancer Breast cancer Colorectal cancer Social History Smoking Status: Never smoker Tobacco Type: Cigarettes Age Started Using Tobacco: 16; Age Quit Using Tobacco: 33; packs per day: 1; Years Smoked: 17; Second Hand Exposure: No; Hx Alcohol Use: Yes Alcohol type: hard liquor Alcohol Intake Frequency: 4 or More x per/Week Hx Substance Use: No Preferred Language: [place] Communication Ability: Effective Visual Impairment: No Limitations Hearing Ability: Normal Superintendent Local Required: No Beliefs That Will Affect Care: None marital status: Current Living Situation: Spouse current occupational status: retired Other Information That Helps Us Care for You: No Feels Safe at Home: Yes Safety Concerns: Feels Safe At This Time Childhood Exposure to Second-Hand Smoke: Yes Dental Care, Regularly: Yes Physical Activity Frequency: 3-4 Times per Week Seatbelt Use: always Sunscreen Use: Yes Assistive Devices: None Review of Systems Review of Systems: All systems reviewed & are unremarkable except as noted in HPI & below Physical Exam Constitutional: well developed, well nourished, + obese and cooperative; no acute distress Eyes: + scleral abnormality (Scleral icterus bilaterally.) Neck: trachea midline, no thyromegaly Respiratory: normal respiratory effort, lungs clear to auscultation Cardiovascular: Rate/Rhythm: regular rate and regular rhythm Heart Sounds: no gallop, no murmur and no cardiac rub Palpation: normal PMI Vessels: no JVD Clicky S1 and S2. Gastrointestinal (Abdomen): Inspection/Auscultation: normal bowel sounds Percussion/Palpation: + abdomen tender (Tender to palpation of the right upper quadrant.) and abdomen soft Skin: no rashes, warm and dry + jaundice Neurologic: CN's II-XI intact bilaterally and moves all extremities Cranial Nerves: PERRL, normal accommodation, EOM intact bilaterally, normal facial strength, tongue midline and normal hearing Psychiatric: A+Ox3, euthymic affect Eye Contact: good eye contact Results & Data Results & Data ([facility]) Vital Signs (Past 12 Hours) Vital Signs Temp Pulse Pulse Resp BP BP Pulse Ox 05/31/21 18:22 72 18 129/72 96 05/31/21 15:45 37.3 C 75 16 153/80 H 98 Supervising Physician Co-Signing Physician Notes During face to face interview, a history and physical exam was obtained. Discussed case with Dr. Barnes Discussed plan of care and answered all of the patient's questions. Reviewed above note and agree with it. Patient will be admitted for choledocholithiasis. will be NPO, will need INR reversed. May need to placed on heparin after surgery as patient has had strokes in the past due to mechanical heart valves. Patient will get ERCP and cholecystectomy during this hospital stay. Hopefully tomorrow. Resident Activity Tracking Resident Involvement: Resident Care Provided Care Provided: Adult Hospital Medicine (1) Diabetes mellitus Diabetes mellitus complication detail: with polyneuropathy Diabetes mellitus complication status: with neurologic complications Diabetes mellitus watermaster insulin use: with fci use Diabetes mellitus type: type 2 Qualified Code(s): E11.42 - Type 2 diabetes mellitus with diabetic polyneuropathy; Z79.4 - assisted (current) use of insulin
[2021-05-31] MEDS ORDERED: POLYETHYLENE (MIRALAX) 17 GM PACK PO PRN (20:20)
[2021-05-31] MEDS ORDERED: ACETAMINOPHEN 325 MG TAB PO PRN (20:20)
[2021-05-31] MEDS ORDERED: ONDANSETRON INJ 2 MG/ML 2 ML VIAL IV PRN (20:20)
[2021-05-31] MEDS ORDERED: GLUCOSE 10 TABS/TUBE PO PRN (20:31)
[2021-05-31] MEDS ORDERED: CARBOHYDRATES FOR HYPOGLYCEMIA PO PRN (20:31)
[2021-05-31] MEDS ORDERED: DEXTROSE 50% 50 ML SYRINGE IV PRN (20:31)
[2021-05-31] MEDS ORDERED: GLUCOSE 40% GEL 15 GM TUBE PO PRN (20:31)
[2021-05-31] MEDS ORDERED: DC ALL PREVIOUSLY ORDERED DIABETES MEDS ONE (20:31)
[2021-05-31] MEDS ORDERED: GLUCAGON FOR INJ 1 MG VIAL SQ PRN (20:31)
[2021-05-31] MEDS ORDERED: MoRPHine SULFATE 4 MG/ML 1 ML CARP\\VIAL IV PRN (21:08)
[2021-05-31] MEDS: SODIUM CHLORIDE 0.9% 1000ML 1,000 ML IV SCH (21:35)
[2021-05-31] MEDS: MoRPHine SULFATE 2 MG/ML CARP IV PRN (21:43)
[2021-05-31] MEDS: INSULIN GLARGINE SOLOSTAR 100 UNITS/ML 3 ML PEN SC SCH (21:59)
[2021-05-31] MEDS: INSULIN ASPART PER UNIT SC SCH (22:00)
[2021-06-01] MEDS: PIPERACILLIN/TAZOBACTAM 3.375 GM in DEXTROSE 5% 100 ML IV SCH ×3 (01:47→22:31)
[2021-06-01] MEDS: ROSUVASTATIN CALCIUM 10 MG TAB PO SCH ×2 (01:47→21:53)
[2021-06-01] MEDS: METOPROLOL TARTRATE 25 MG TAB PO SCH ×3 (01:47→21:53)
[2021-06-01] MEDS: MoRPHine SULFATE 2 MG/ML CARP IV PRN ×3 (03:53→21:58)
[2021-06-01] MEDS ORDERED: diphenhydrAMINE 50 MG/ML VIAL IV STA (04:55)
[2021-06-01 05:56] LABS: Hematocrit (blood only) 33.2 % (42-52); Hemoglobin 11.1 g/dL (14.0-18.0); Mean Corpuscular Hemoglobin 29.9 pg (25-34); Mean Corpuscular Hgb Conc 33.4 g/dL (32-36); Mean Corpuscular Volume 89.5 fL (80-100); Mean Platelet Volume 9.8 fL (7.4-10.4); Platelet Count 193 K/uL (130-400); RDW Coefficient of Variation 13.4 % (11.5-14.5); Red Blood Count 3.71 M/uL (4.7-6.1); White Blood Count 5.13 K/uL (4.8-10.8)
[2021-06-01 06:42] LABS: Albumin Globulin Ratio 0.7 (0.9-2); Albumin Level 2.5 gm/dl (3.4-5.0); BUN Creatinine Ratio 18.9 (10-20); Bilirubin,Total 6.1 mg/dl (0.2-1); Calcium 8.9 mg/dl (8.5-10.1); Creatinine Clr Calc Pharmacy 78.5 ml/min; Est GFR (African American) 90.8 ml/min; Est GFR (Non-African American) 78.4 ml/min; Globulin 3.4 gm/dl (2.5-4.0); Potassium 3.5 mmol/L (3.5-5.1); Total Protein 5.9 gm/dl (6.4-8.2); Troponin I 0.184 ng/ml (0-0.045)
[2021-06-01 07:11] LABS: Estimated Average Glucose 154 mg/dl
[2021-06-01] MEDS ORDERED: LIDOCAINE 2% 2 ML VIAL/AMP(20MG/ML) INFIL ONE ×4 (07:49→08:45)
[2021-06-01] MEDS ORDERED: PROPOFOL IV EMULSION 10 MG/ML 20 ML VIAL IV ONE (07:49)
[2021-06-01] MEDS ORDERED: MIDAZOLAM HCL 1 MG/ML 2ML VIAL ONE (07:49)
[2021-06-01] MEDS ORDERED: ONDANSETRON INJ 2 MG/ML 2 ML VIAL ONE ×2 (07:49→08:45)
[2021-06-01] MEDS ORDERED: fentaNYL citrate 100 MCG/2 ML VIAL ONE (07:49)
[2021-06-01 08:18] LABS: INR 1.8 (0.9-1.1); Prothrombin Time 17.5 Seconds (9.0-12.0)
[2021-06-01] MEDS ORDERED: SUCCINYLCHOLINE CHLORIDE 20 MG/ML 10 ML VIAL IV ONE (08:45)
--- NOTE | 2021-06-01 08:57 | Gastrointestinal Consultation ---
Date of Consultation June 01, 2021 Assessment & Plan (1) Choledocholithiasis: 70 year old male w/ numerous chronic comorbidities admitted w/ abd pain, abnormal labs, concerning for retained biliary stones w/ biliary obstruction and pancreatitis . NPO LR 150-200 mL/hr Antiemetics PRN Analgesia PRN Hold Coumadin No NSAIDs Agree w/ IV ABX ERCP timing to be determined Appreciate general surgery consultation Thank you for allowing us to participate in the care of this patient. Please call with any acute changes, questions or concerns. Please see addendum below with additional recommendation from my supervising physician. Supervising Physician Co-Signing Physician Notes I saw and evaluated the patient. We were consulted for evaluation of new onset jaundice and choledocholithiasis. Patient has intermittent pain over the last 1 week and was admitted with significant elevation of his liver associated enzymes. CT scan the abdomen shows evidence of choledocholithiasis. Physical examination no obvious distress scleral icterus noted right upper quadrant tenderness noted Impression patient with choledocholithiasis initially presented with a significant elevation of his INR. Patient's INR is now less than 2 we will therefore proceed with ERCP for biliary decompression today. We have discussed the risks of the procedure to include bleeding, infection, perforation, pain, pancreatitis and the need for follow-up studies. Once the patient's ERCP is completed he should be reevaluated by general surgery to determine timing of cholecystectomy. Plan ERCP today avoid nonsteroidals and anticoagulation for 5 days please continue course of empiric antibiotics for total of 10 days History of Present Illness Reason for Consultation: elevated LFTs Requesting Physician: Nhi Attending Physician: Mike Hankins History of Present Illness 70 year old male with history of mechanical aortic and mitral heart valves, chronic anticoagulation on Coumadin, paroxysmal atrial fibrillation, AICD placed, DM 2, hypertension, and hyperlipidemia presenting to the hospital for the chief complaint of abdominal pain - GI asked to evaluate given elevated LFTs and abnormal imaging. Pt was seen and evaluated, chart reviewed. Notes abd pain x 1 week. Lower abd and right side. Severe stabbing and burning. Some nausea, no vomiting. Associated with intermittent fever, TMAX 103 a few days ago. Saw OP provider, was recommended ED for evaluation abnormal labs. INR 10 reversed to 1.8 TB 6 AST 46 ALT 63 ALKP 226 Trop .184 Lipase 2100 CTAP 2020: There is a 7 mm stone at the distal common bile duct resulting in mild bile duct dilatation. There is also distended gallbladder with a thickened wall and mild pericholecystic inflammatory change. Therefore, this is consistent with an acute cholecystitis. Surgical consultation recommended. 2. There is also mild peripancreatic inflammatory change consistent with an acute pancreatitis. This is likely due to the common bile duct stone. 3. Cholelithiasis. 4. No bowel wall thickening or obstruction. 5. Mild bladder wall thickening. This could be due to a cystitis. Recommend correlation with urinalysis. Allergies Allergy/AdvReac Type Severity Reaction Status Date / Time No Known Drug Allergies Allergy Verified 06/01/21 09:21 Home Medications Medication Instructions Recorded Confirmed Type acetaminophen 325 mg tablet 325 - 650 mg PO Q6H PRN tab 02/19/19 05/31/21 History ascorbic acid (vitamin C) 500 mg 500 mg PO BID #180 tab 02/19/19 05/31/21 History tablet ferrous sulfate 325 mg (65 mg 325 mg PO BID tab 02/19/19 05/31/21 History iron) tablet insulin syringe-needle U-100 0.3 #10 ea 03/10/19 05/30/21 History mL 31 gauge x 5/16" (UltiCare) amoxicillin 500 mg capsule 500 mg PO .COMPLEX PRN cap 07/22/19 05/31/21 History multivitamin (Multiple Vitamins) 1 tab PO QAM 07/22/19 05/31/21 History metoprolol tartrate 25 mg tablet 25 mg PO BID #180 tab 10/07/20 05/31/21 Rx flash glucose scanning reader #1 ea 11/23/20 05/30/21 Rx (FreeStyle Ulises 14 Day [place]) blood sugar diagnostic (OneTouch #100 ea 12/30/20 05/30/21 Rx Ultra Test) blood-glucose meter (OneTouch #1 ea 12/30/20 05/30/21 Rx Ultra2 Meter) lancets 30 gauge (OneTouch Delica #100 ea 12/31/20 05/30/21 Rx Lancets) warfarin 5 mg tablet 7.5 mg PO UD 01/05/21 05/31/21 History pen needle, diabetic 32 gauge x #200 ea 02/07/21 05/30/21 Rx 1/4" (UltiCare Pen Needle) pantoprazole 20 mg tablet,delayed 20 mg PO QAM #90 tab 03/09/21 05/31/21 Rx release dulaglutide 0.75 mg/0.5 mL 0.75 mg SQ WK #6 ml 03/18/21 05/31/21 Rx subcutaneous pen injector (Trulicity) magnesium oxide 400 mg (241.3 mg 400 mg PO BID #180 tab 03/21/21 05/31/21 Rx magnesium) tablet rosuvastatin 10 mg tablet 10 mg PO HS #90 tab 03/21/21 05/31/21 Rx flash glucose sensor (FreeStyle #1 ea 04/06/21 05/30/21 Rx Ulises 14 Day Sensor) cholecalciferol (vitamin D3) 50 2,000 unit PO QAM #90 tab 04/08/21 05/31/21 Rx mcg (2,000 unit) tablet lisinopril 20 mg tablet 20 mg PO BID #180 tab 04/08/21 05/31/21 Rx ketoconazole 2 % topical cream 1 applic TOP BID PRN #60 gm 05/17/21 05/31/21 Rx insulin glargine 100 unit/mL (3 30 unit SQ DAILY #15 ml 05/30/21 05/31/21 Rx mL) subcutaneous pen (Lantus Solostar U-100 Insulin) aspirin 81 mg tablet,delayed 81 mg PO DAILY 05/31/21 05/31/21 History release bromfenac 0.09 % eye drops 0 drp OPHTHALMIC (EYE) DAILY 05/31/21 05/31/21 History prednisolone acetate 1 % eye 0 drp OPHTHALMIC (EYE) DAILY 05/31/21 05/31/21 History drops,suspension Patient History Medical History Anticoagulant long-term use Anxiety Coronary arteriosclerosis Difficult intravenous access DM type 2 (diabetes mellitus, type 2) History of gout History of stroke 2 strokes during open heart surgery -- [facility] 2013; no residual effects HLD (hyperlipidemia) Hypertension Iron deficiency anemia Osteoarthritis Pacemaker [address] [facility] - last checked jun or jul 2020 - bradycardia - follows with Dr. Marie Paroxysmal atrial fibrillation pt denies Restless leg syndrome Rheumatic heart disease Vitamin D deficiency Surgical History Aortic valve replaced History of cardiac catheterization x 4 - no stents (most recent cath 2013 prior to valve replavcement surgery) History of carpal tunnel surgery of left wrist History of carpal tunnel surgery of right wrist History of colonoscopy History of esophagogastroduodenoscopy (EGD) History of open heart surgery 2013 History of resection of rib History of right cataract surgery Mechanical heart valve present Mitral valve replaced 2013 S/P trigger finger release mult Family History Mother Diabetes Lung cancer Hypertension Unknown Myocardial infarction Brother Myocardial infarction Grandfather (Maternal) Myocardial infarction Grandmother Diabetes Hypertension Father Stroke Other No family history of adverse response to anesthesia Denies family history of Ovarian cancer Prostate cancer Breast cancer Colorectal cancer Social History Smoking Status: Never smoker Tobacco Type: Cigarettes Age Started Using Tobacco: 16; Age Quit Using Tobacco: 33; packs per day: 1; Years Smoked: 17; Second Hand Exposure: No; Hx Alcohol Use: Yes Alcohol type: hard liquor Alcohol Intake Frequency: 4 or More x per/Week Hx Substance Use: No Preferred Language: [place] Leonean Communication Ability: Effective Visual Impairment: No Limitations Hearing Ability: Normal Stitcher Operator Required: No Beliefs That Will Affect Care: None marital status: Current Living Situation: Spouse current occupational status: retired Other Information That Helps Us Care for You: No Feels Safe at Home: Yes Safety Concerns: Feels Safe At This Time Childhood Exposure to Second-Hand Smoke: Yes Dental Care, Regularly: Yes Physical Activity Frequency: 3-4 Times per Week Seatbelt Use: always Sunscreen Use: Yes Assistive Devices: Glasses Review of Systems Review of Systems: All systems reviewed & are unremarkable except as noted in HPI & below Physical Exam Constitutional: WD/WN, vitals as above Respiratory: normal respiratory effort, lungs clear to auscultation Cardiovascular: Heart Sounds: normal S1 and normal S2 Gastrointestinal (Abdomen): Inspection/Auscultation: abdomen normal to inspection and normal bowel sounds; abdomen not distended Percussion/Palpation: abdomen soft; abdomen nontender and no guarding Skin: no rashes, warm and dry Results & Data ([facility]) Vital Signs (Past 12 Hours) Vital Signs Temp Pulse Resp BP Pulse Ox 06/01/21 03:59 36.8 C 63 20 142/73 H 97 05/31/21 22:30 60 12 123/70 96 05/31/21 22:00 62 13 111/57 L 96 05/31/21 21:00 60 17 135/56 L 94 Laboratory Results 06/01/21 06/01/21 06/01/21 Range/Units 07:37 05:45 05:45 WBC (4.8-10.8) K/uL RBC (4.7-6.1) M/uL Hgb (14.0-18.0) g/dL Hct (42-52) % MCV (80-100) fL MCH (25-34) pg MCHC (32-36) g/dL RDW Std Deviation (36.4-46.3) fL RDW Coeff of Karan (11.5-14.5) % Plt Count (130-400) K/uL MPV (7.4-10.4) fL Immature Gran % (Auto) % Neut % (Auto) % Lymph % (Auto) % Smith % (Auto) % Eos % (Auto) % Baso % (Auto) % Neut # (Auto) (1.4-6.5) K/uL Lymph # (Auto) (1.2-3.4) K/uL Smith # (Auto) (0.11-0.59) K/uL Eos # (Auto) (0-0.5) K/uL Baso # (Auto) (0-0.2) K/uL Immature Gran # (Auto) (0.00-0.02) K/uL PT 17.5 H (9.0-12.0) Seconds INR 1.8 H (0.9-1.1) APTT (21.0-31.0) Seconds PTT Ratio Sodium 132 L (136-145) mmol/L Potassium 3.5 (3.5-5.1) mmol/L Chloride 98 (98-107) mmol/L Carbon Dioxide 27 (21-32) mmol/L Anion Gap 7.0 (3-11) BUN 19 H (7-18) mg/dl Creatinine 0.98 (0.6-1.4) mg/dl Est Cr Clr Drug Dosing 78.5 ml/min Est GFR ( Amer) 90.8 ml/min Est GFR (Non-Af Amer) 78.4 ml/min BUN/Creatinine Ratio 18.9 (10-20) Glucose 143 H (70-99) mg/dl POC Glucose (70-99) mg/dl Estimat Average Glucose mg/dl Hemoglobin A1c (4.5-5.6) % Calcium 8.9 (8.5-10.1) mg/dl Total Bilirubin 6.1 H (0.2-1) mg/dl AST 46 H (15-37) U/L ALT 63 (12-78) Alkaline Phosphatase 226 H D (45-117) U/L Troponin I 0.184 H* (0-0.045) ng/ml Total Protein 5.9 L D (6.4-8.2) gm/dl Albumin 2.5 L (3.4-5.0) gm/dl Globulin 3.4 (2.5-4.0) gm/dl Albumin/Globulin Ratio 0.7 L (0.9-2) Lipase 2113 H (73-393) U/L Urine Color Urine Appearance (Clear) Urine pH (4.5-7.5) Ur Specific [place] (1.000-1.030) Urine Protein (Negative) Urine Glucose (UA) (Negative) Urine Ketones (Negative) Urine Blood (Negative) Urine Nitrite (Negative) Urine Bilirubin (Negative) Urine Urobilinogen (Negative) Ur Leukocyte Esterase (Negative) SARS-CoV-2, RNA, NAAT (NEGATIVE) 06/01/21 06/01/21 06/01/21 Range/Units 05:45 05:45 00:10 WBC 5.13 (4.8-10.8) K/uL RBC 3.71 L (4.7-6.1) M/uL Hgb 11.1 L (14.0-18.0) g/dL Hct 33.2 L (42-52) % MCV 89.5 (80-100) fL MCH 29.9 (25-34) pg MCHC 33.4 (32-36) g/dL RDW Std Deviation 44.0 (36.4-46.3) fL RDW Coeff of Karan 13.4 (11.5-14.5) % Plt Count 193 (130-400) K/uL MPV 9.8 (7.4-10.4) fL Immature Gran % (Auto) % Neut % (Auto) % Lymph % (Auto) % Smith % (Auto) % Eos % (Auto) % Baso % (Auto) % Neut # (Auto) (1.4-6.5) K/uL Lymph # (Auto) (1.2-3.4) K/uL Smith # (Auto) (0.11-0.59) K/uL Eos # (Auto) (0-0.5) K/uL Baso # (Auto) (0-0.2) K/uL Immature Gran # (Auto) (0.00-0.02) K/uL PT (9.0-12.0) Seconds INR (0.9-1.1) APTT (21.0-31.0) Seconds PTT Ratio Sodium (136-145) mmol/L Potassium (3.5-5.1) mmol/L Chloride (98-107) mmol/L Carbon Dioxide (21-32) mmol/L Anion Gap (3-11) BUN (7-18) mg/dl Creatinine (0.6-1.4) mg/dl Est Cr Clr Drug Dosing ml/min Est GFR ( Amer) ml/min Est GFR (Non-Af Amer) ml/min BUN/Creatinine Ratio (10-20) Glucose (70-99) mg/dl POC Glucose (70-99) mg/dl Estimat Average Glucose 154 mg/dl Hemoglobin A1c 7.0 H (4.5-5.6) % Calcium (8.5-10.1) mg/dl Total Bilirubin (0.2-1) mg/dl AST (15-37) U/L ALT (12-78) Alkaline Phosphatase (45-117) U/L Troponin I 0.187 H* (0-0.045) ng/ml Total Protein (6.4-8.2) gm/dl Albumin (3.4-5.0) gm/dl Globulin (2.5-4.0) gm/dl Albumin/Globulin Ratio (0.9-2) Lipase (73-393) U/L Urine Color Urine Appearance (Clear) Urine pH (4.5-7.5) Ur Specific [place] (1.000-1.030) Urine Protein (Negative) Urine Glucose (UA) (Negative) Urine Ketones (Negative) Urine Blood (Negative) Urine Nitrite (Negative) Urine Bilirubin (Negative) Urine Urobilinogen (Negative) Ur Leukocyte Esterase (Negative) SARS-CoV-2, RNA, NAAT (NEGATIVE) 05/31/21 05/31/21 05/31/21 Range/Units 21:50 18:15 17:04 WBC (4.8-10.8) K/uL RBC (4.7-6.1) M/uL Hgb (14.0-18.0) g/dL Hct (42-52) % MCV (80-100) fL MCH (25-34) pg MCHC (32-36) g/dL RDW Std Deviation (36.4-46.3) fL RDW Coeff of Karan (11.5-14.5) % Plt Count (130-400) K/uL MPV (7.4-10.4) fL Immature Gran % (Auto) % Neut % (Auto) % Lymph % (Auto) % Smith % (Auto) % Eos % (Auto) % Baso % (Auto) % Neut # (Auto) (1.4-6.5) K/uL Lymph # (Auto) (1.2-3.4) K/uL Smith # (Auto) (0.11-0.59) K/uL Eos # (Auto) (0-0.5) K/uL Baso # (Auto) (0-0.2) K/uL Immature Gran # (Auto) (0.00-0.02) K/uL PT (9.0-12.0) Seconds INR (0.9-1.1) APTT (21.0-31.0) Seconds PTT Ratio Sodium (136-145) mmol/L Potassium (3.5-5.1) mmol/L Chloride (98-107) mmol/L Carbon Dioxide (21-32) mmol/L Anion Gap (3-11) BUN (7-18) mg/dl Creatinine (0.6-1.4) mg/dl Est Cr Clr Drug Dosing ml/min Est GFR ( Amer) ml/min Est GFR (Non-Af Amer) ml/min BUN/Creatinine Ratio (10-20) Glucose (70-99) mg/dl POC Glucose 223 H (70-99) mg/dl Estimat Average Glucose mg/dl Hemoglobin A1c (4.5-5.6) % Calcium (8.5-10.1) mg/dl Total Bilirubin (0.2-1) mg/dl AST (15-37) U/L ALT (12-78) Alkaline Phosphatase (45-117) U/L Troponin I (0-0.045) ng/ml Total Protein (6.4-8.2) gm/dl Albumin (3.4-5.0) gm/dl Globulin (2.5-4.0) gm/dl Albumin/Globulin Ratio (0.9-2) Lipase (73-393) U/L Urine Color Dark Yellow Urine Appearance Clear (Clear) Urine pH 5.0 (4.5-7.5) Ur Specific [place] 1.014 (1.000-1.030) Urine Protein Negative (Negative) Urine Glucose (UA) Negative (Negative) Urine Ketones Trace H (Negative) Urine Blood Negative (Negative) Urine Nitrite Negative (Negative) Urine Bilirubin 2+ H (Negative) Urine Urobilinogen Negative (Negative) Ur Leukocyte Esterase Negative (Negative) SARS-CoV-2, RNA, NAAT NEGATIVE (NEGATIVE) 05/31/21 05/31/21 05/31/21 Range/Units 17:04 17:04 17:04 WBC 11.15 H (4.8-10.8) K/uL RBC 4.35 L (4.7-6.1) M/uL Hgb 13.4 L (14.0-18.0) g/dL Hct 39.2 L (42-52) % MCV 90.1 (80-100) fL MCH 30.8 (25-34) pg MCHC 34.2 (32-36) g/dL RDW Std Deviation 43.9 (36.4-46.3) fL RDW Coeff of Karan 13.3 (11.5-14.5) % Plt Count 256 (130-400) K/uL MPV 10.0 (7.4-10.4) fL Immature Gran % (Auto) 0.2 % Neut % (Auto) 89.2 % Lymph % (Auto) 10.0 % Smith % (Auto) 0.4 % Eos % (Auto) 0.1 % Baso % (Auto) 0.1 % Neut # (Auto) 9.95 H (1.4-6.5) K/uL Lymph # (Auto) 1.12 L (1.2-3.4) K/uL Smith # (Auto) 0.04 L (0.11-0.59) K/uL Eos # (Auto) 0.01 (0-0.5) K/uL Baso # (Auto) 0.01 (0-0.2) K/uL Immature Gran # (Auto) 0.02 (0.00-0.02) K/uL PT > 90.0 H (9.0-12.0) Seconds INR > 10.7 H* (0.9-1.1) APTT 47.3 H* (21.0-31.0) Seconds PTT Ratio 1.8 Sodium 130 L (136-145) mmol/L Potassium 3.9 (3.5-5.1) mmol/L Chloride 91 L (98-107) mmol/L Carbon Dioxide 27 (21-32) mmol/L Anion Gap 12.0 H (3-11) BUN 19 H (7-18) mg/dl Creatinine 1.12 (0.6-1.4) mg/dl Est Cr Clr Drug Dosing 68.8 ml/min Est GFR ( Amer) 77.3 ml/min Est GFR (Non-Af Amer) 66.7 ml/min BUN/Creatinine Ratio 17.1 (10-20) Glucose 250 H (70-99) mg/dl POC Glucose (70-99) mg/dl Estimat Average Glucose mg/dl Hemoglobin A1c (4.5-5.6) % Calcium 9.4 (8.5-10.1) mg/dl Total Bilirubin 6.7 H (0.2-1) mg/dl AST 58 H (15-37) U/L ALT 82 H (12-78) Alkaline Phosphatase 285 H (45-117) U/L Troponin I 0.172 H* (0-0.045) ng/ml Total Protein 7.7 (6.4-8.2) gm/dl Albumin 3.3 L (3.4-5.0) gm/dl Globulin 4.4 H (2.5-4.0) gm/dl Albumin/Globulin Ratio 0.7 L (0.9-2) Lipase 68751 H (73-393) U/L Urine Color Urine Appearance (Clear) Urine pH (4.5-7.5) Ur Specific [place] (1.000-1.030) Urine Protein (Negative) Urine Glucose (UA) (Negative) Urine Ketones (Negative) Urine Blood (Negative) Urine Nitrite (Negative) Urine Bilirubin (Negative) Urine Urobilinogen (Negative) Ur Leukocyte Esterase (Negative) SARS-CoV-2, RNA, NAAT (NEGATIVE)
--- NOTE | 2021-06-01 09:46 | Anesthesiology Consultation ---
Date of Service June 01, 2021 Assessment & Plan Chart Review Chart Review: Acceptable Risk for Surgery and Patient NOT seen in Pre Admission Testing Consults Requested none ASA [id number] Proposed Anesthesia Anesthesia Type: General Risk / Benefits Reviewed With: PT / POA / Parent / Guardian, Accepts Plan and Informed Consent Obtained Additional Comments: covid test neg. History Surgery Operation Date: 06/01/21 12:00 Proposed Procedures p Endoscopic Retrograde Cholangiopancreatogram - Chantal Wheeler DO Height/Weight Height: 5 ft 7 in Weight: 96 kg Allergies Allergy/AdvReac Type Severity Reaction Status Date / Time No Known Drug Allergies Allergy Verified 06/01/21 09:21 Medications Home Medications Medication Instructions Recorded Confirmed Last Taken acetaminophen 325 mg tablet 325 - 650 mg PO Q6H PRN tab 02/19/19 05/31/21 05/29/21 ascorbic acid (vitamin C) 500 mg 500 mg PO BID #180 tab 02/19/19 05/31/21 05/31/21 tablet ferrous sulfate 325 mg (65 mg 325 mg PO BID tab 02/19/19 05/31/21 05/31/21 iron) tablet insulin syringe-needle U-100 0.3 #10 ea 03/10/19 05/30/21 Unknown mL 31 gauge x 5/16" (UltiCare) amoxicillin 500 mg capsule 500 mg PO .COMPLEX PRN cap 07/22/19 05/31/21 05/31/21 multivitamin (Multiple Vitamins) 1 tab PO QAM 07/22/19 05/31/21 05/31/21 metoprolol tartrate 25 mg tablet 25 mg PO BID #180 tab 10/07/20 05/31/21 05/31/21 flash glucose scanning reader #1 ea 11/23/20 05/30/21 Unknown (FreeStyle Ulises 14 Day [place]) blood sugar diagnostic (OneTouch #100 ea 12/30/20 05/30/21 Unknown Ultra Test) blood-glucose meter (OneTouch #1 ea 12/30/20 05/30/21 Unknown Ultra2 Meter) lancets 30 gauge (OneTouch Delica #100 ea 12/31/20 05/30/21 05/31/21 Lancets) warfarin 5 mg tablet 7.5 mg PO UD 01/05/21 05/31/21 05/31/21 pen needle, diabetic 32 gauge x #200 ea 02/07/21 05/30/21 05/31/21 1/4" (UltiCare Pen Needle) pantoprazole 20 mg tablet,delayed 20 mg PO QAM #90 tab 03/09/21 05/31/21 05/31/21 release dulaglutide 0.75 mg/0.5 mL 0.75 mg SQ WK #6 ml 03/18/21 05/31/21 05/31/21 subcutaneous pen injector (Trulicity) magnesium oxide 400 mg (241.3 mg 400 mg PO BID #180 tab 03/21/21 05/31/21 05/31/21 magnesium) tablet rosuvastatin 10 mg tablet 10 mg PO HS #90 tab 03/21/21 05/31/21 05/30/21 flash glucose sensor (FreeStyle #1 ea 04/06/21 05/30/21 Unknown Ulises 14 Day Sensor) cholecalciferol (vitamin D3) 50 2,000 unit PO QAM #90 tab 04/08/21 05/31/21 05/31/21 mcg (2,000 unit) tablet lisinopril 20 mg tablet 20 mg PO BID #180 tab 04/08/21 05/31/21 05/31/21 ketoconazole 2 % topical cream 1 applic TOP BID PRN #60 gm 05/17/21 05/31/21 05/31/21 insulin glargine 100 unit/mL (3 30 unit SQ DAILY #15 ml 05/30/21 05/31/21 05/31/21 mL) subcutaneous pen (Lantus Solostar U-100 Insulin) aspirin 81 mg tablet,delayed 81 mg PO DAILY 05/31/21 05/31/21 05/31/21 release bromfenac 0.09 % eye drops 0 drp OPHTHALMIC (EYE) DAILY 05/31/21 05/31/21 Unk nown prednisolone acetate 1 % eye 0 drp OPHTHALMIC (EYE) DAILY 05/31/21 05/31/21 Unknown drops,suspension Active Medications Generic Name Dose Route Start Last Admin Trade Name Freq PRN Reason Stop Dose Admin Sodium Chloride 1,000 mls @ 80 mls/hr 05/31/21 20:45 06/01/21 09:19 Nss 1000ml IV 06/30/21 20:44 Infused .[id number] NEIL Infusion Piperacillin Sod/Tazobactam 115 mls @ 28.75 mls/hr 06/01/21 00:00 06/01/21 09:19 Sod 3.375 gm/ Dextrose IV 06/11/21 00:00 Infused Q8H NEIL Infusion Protocol Insulin Aspart 0 units 05/31/21 21:00 05/31/21 22:00 Insulin Aspart Per Unit SC 06/30/21 20:59 2 units ACHS NEIL Administration Insulin Glargine 8 units 05/31/21 21:00 05/31/21 21:59 Insulin Glargine Solostar 100 Units/Ml 3 Ml Pen SC 06/30/21 20:59 8 units BID NEIL Administration Metoprolol Tartrate 25 mg 05/31/21 23:50 06/01/21 01:47 Metoprolol Tartrate 25 Mg Tab PO 06/30/21 23:49 25 mg BID NEIL Administration Morphine Sulfate 2 mg 05/31/21 21:08 06/01/21 03:53 Morphine Sulfate 2 Mg/Ml Carp IV 06/14/21 21:07 2 mg Q4H PRN Administration Pain (1,2,3,4,5) & Pre PT Rosuvastatin Calcium 10 mg 05/31/21 23:50 06/01/21 01:47 Rosuvastatin Calcium 10 Mg Tab PO 06/30/21 23:49 10 mg HS NEIL Administration NPO Date Last Intake of Fluids: 05/31/21 Time Last Intake of Fluids: 23:55 Last Intake of Fluids Comment: sip of water at 0700 with meds this am Date Last Intake of Solids: 05/31/21 Time Last Intake of Solids: 12:00 Past Medical History Medical History Anticoagulant long-term use Anxiety Coronary arteriosclerosis Difficult intravenous access DM type 2 (diabetes mellitus, type 2) History of gout History of stroke 2 strokes during open heart surgery -- [facility] 2013; no residual effects HLD (hyperlipidemia) Hypertension Iron deficiency anemia Osteoarthritis Pacemaker 2013 [facility] - last checked jun or jul 2020 - bradycardia - follows with Dr. Marie Paroxysmal atrial fibrillation pt denies Restless leg syndrome Rheumatic heart disease Vitamin D deficiency Exercise / Class Metabolic Activity III < 4 Walking/Shop/Light housework Past Family History Family History Mother Diabetes Lung cancer Hypertension Unknown Myocardial infarction Brother Myocardial infarction Grandfather (Maternal) Myocardial infarction Grandmother Diabetes Hypertension Father Stroke Other No family history of adverse response to anesthesia Denies family history of Ovarian cancer Prostate cancer Breast cancer Colorectal cancer Past Surgical History Surgical History Aortic valve replaced History of cardiac catheterization x 4 - no stents (most recent cath 2013 prior to valve replavcement surgery) History of carpal tunnel surgery of left wrist History of carpal tunnel surgery of right wrist History of colonoscopy History of esophagogastroduodenoscopy (EGD) History of open heart surgery 2013 History of resection of rib History of right cataract surgery Mechanical heart valve present Mitral valve replaced 2013 S/P trigger finger release mult Past Anesthesia History No Hx of Anesthesia Complications and No Family Hx of Anesthesia Complications History of PONV No Hx of PONV and No Hx of Motion Sickness Social History Smoking Status: Never smoker tobacco type: cigarettes Hx Alcohol Use: Yes Alcohol type: hard liquor alcohol intake frequency: a few times a month Hx Substance Use: No substance use type: marijuana Physical Exam Vital Signs Last Vital Signs Temp 37 C 06/01/21 09:21 Pulse 70 06/01/21 09:21 Resp 20 06/01/21 09:21 BP 169/81 H 06/01/21 09:21 Pulse Ox 97 06/01/21 09:21 Constitutional + obese ENMT Mouth: no dentition abnormality Thyromental Distance: > or= 3.5 Finger Breadths Mallampati Class: II Neck normal visual inspection, trachea midline and + facial hair; neck extension not limited Respiratory normal respiratory effort Auscultation: + diminished lung sounds Cardiovascular Rate/Rhythm: regular rate and regular rhythm Heart Sounds: no murmur Vessels: no carotid bruit Chest (Breasts) Chest: + pacemaker (lt. sub clav) Musculoskeletal Spine: normal cervical ROM Neurologic moves all extremities Motor/Sensory: no sensory deficit Psychiatric Orientation: alert and oriented x 3 Testing Laboratory Results 06/01/21 05:45 06/01/21 05:45 PT 17.5 Seconds (9.0-12.0) H 06/01/21 07:37 INR 1.8 (0.9-1.1) H 06/01/21 07:37 APTT 47.3 Seconds (21.0-31.0) H* 05/31/21 17:04 Hemoglobin A1c 7.0 % (4.5-5.6) H 06/01/21 05:45 Urine Color Dark Yellow 05/31/21 17:04 Urine Appearance Clear (Clear) 05/31/21 17:04 Urine pH 5.0 (4.5-7.5) 05/31/21 17:04 Ur Specific [place] 1.014 (1.000-1.030) 05/31/21 17:04 Urine Protein Negative (Negative) 05/31/21 17:04 Urine Glucose (UA) Negative (Negative) 05/31/21 17:04 Urine Ketones Trace (Negative) H 05/31/21 17:04 Urine Nitrite Negative (Negative) 05/31/21 17:04 Ur Leukocyte Esterase Negative (Negative) 05/31/21 17:04 05/31/21 21:50 POC Glucose 223 H Electrocardiogram Date: 05/31/21 Findings: + pertinent finding (v paced at 70)
[2021-06-01] MEDS ORDERED: INDOMETHACIN 50 MG SUPP PR ONE ×2 (10:13→10:24)
--- NOTE | 2021-06-01 10:13 | History & Physical Bridge Note ---
Date of Service June 01, 2021 History & Physical Bridge Note I have examined the patient, reviewed the History & Physical and in the interval since the performance of the History & Physical I have noted the following changes of clinical significance: no changes noted
[2021-06-01] MEDS ORDERED: DEXAMETHASONE SOD INJ 4 MG/ML VIAL ONE (10:34)
[2021-06-01] MEDS ORDERED: PHENYLEPHRINE 100MCG/ML 5ML SYR ONE (10:35)
[2021-06-01] MEDS ORDERED: PHENYLEPHRINE HCL 10 MG/ML VIAL ONE (10:55)
--- NOTE | 2021-06-01 11:15 | Post Operative Brief Note ---
Immediate Post Op Note v1 Date of Surgery June 01, 2021 Pre & Post Diagnosis Operation Date: 06/01/21 12:00 Pre-Op Diagnosis: Cholelithiasis Post-Op Diagnosis: Cholelithiasis, cholangitis I identified the patient and participated in the time-out.: Yes Procedure Operation Date: 06/01/21 12:00 Actual Procedures p Endoscopic Retrograde Cholangiopancreatography with Stent Placement, GallStone Retraction(Not Applicable) - Chantal Wheeler DO Surgeon Chantal Wheeler DO Embedded Software Design Engineer None Estimated Blood Loss 0 Findings Consistent with Post-Op Diagnosis
--- NOTE | 2021-06-01 11:17 | Communication Note ---
Date of Service: June 01, 2021 The patient underwent ERCP this morning. The ERCP was notable for sludge and stone material within the bulb in addition to pus consistent with cholangitis. A biliary sphincterotomy was performed in 2 biliary stents were placed. Recommendations May have clear liquids, continue IV hydration, continue antibiotic coverage, await surgical input for cholecystectomy timing. Please avoid use of nonsteroidals for 1 week.
[2021-06-01] MEDS ORDERED: PROMETHAZINE HCL 12.5 MG in SODIUM CHLORIDE 0.9% 50 ML IV PRN (11:18)
[2021-06-01] MEDS ORDERED: ATROPINE SULFATE 0.1 MG/ML 10ML SYR IV PRN (11:18)
[2021-06-01] MEDS ORDERED: ePHEDrine sulfate 50 MG/ML AMP IV PRN (11:18)
[2021-06-01] MEDS ORDERED: FLUMAZENIL 0.1 MG/1 ML 10 ML VIAL IV PRN (11:18)
[2021-06-01] MEDS ORDERED: LABETALOL HCL IV 5 MG/ML 20ML IV PRN (11:18)
[2021-06-01] MEDS ORDERED: NALOXONE HCL 0.4 MG/1 ML VIAL/CARP IV PRN (11:18)
[2021-06-01] MEDS ORDERED: ONDANSETRON INJ 2 MG/ML 2 ML VIAL IV PRN (11:18)
--- NOTE | 2021-06-01 11:21 | GI REPORT ---
Patient Name: Bud Patton Procedure Date: 06/01/2021 10:27 AM Date of : 1950 Admit Type: Inpatient Age: 70 Gender: Male Attending MD: Chantal Wheeler DO Procedure: ERCP Providers: Chantal Wheeler DO Referring MD: Momo Benavides Indications: Abdominal pain of suspected biliary origin, Bile duct stone on Computed Tomogram Scan, Elevated liver enzymes Medicines: General Anesthesia Complications: No immediate complications. Estimated blood loss: Minimal. Estimated Blood Loss: Estimated blood loss was minimal. Procedure: Pre-Anesthesia Assessment: - Prior to the procedure, a History and Physical was performed, and patient medications, allergies and sensitivities were reviewed. The patient's tolerance of previous anesthesia was reviewed. - The risks and benefits of the procedure and the sedation options and risks were discussed with the patient. All questions were answered and informed consent was obtained. - Patient identification and proposed procedure were verified prior to the procedure by the physician, the nurse and the material requisitioner. The procedure was verified in the procedure room. - Pre-procedure physical examination revealed no contraindications to sedation. - ASA Grade Assessment: III - A patient with severe systemic disease. - After reviewing the risks and benefits, the patient was deemed in satisfactory condition to undergo the procedure. - The anesthesia plan was to use general anesthesia. - Immediately prior to administration of medications, the patient was re-assessed for adequacy to receive sedatives. - The heart rate, respiratory rate, oxygen saturations, blood pressure, adequacy of pulmonary ventilation, and response to care were monitored throughout the procedure. - The physical status of the patient was re-assessed after the procedure. After obtaining informed consent, the scope was passed under direct vision. Throughout the procedure, the patient's blood pressure, pulse, and oxygen saturations were monitored continuously. The Duodenoscope was introduced through the mouth, and advanced to the duodenum and used to inject contrast into the bile duct. The ERCP was accomplished without difficulty. The patient tolerated the procedure well. Findings: The kelp gatherer film was normal. The esophagus was successfully intubated under direct vision without detailed examination of the pharynx, larynx, and associated structures, and upper GI tract. The upper GI tract was grossly normal. The major papilla was normal. The bile duct was deeply cannulated with the short-nosed traction sphincterotome and guidewire. Contrast was injected. I personally interpreted the bile duct images. Contrast extended to the hepatic ducts. The lower third of the main bile duct contained filling defect(s) thought to be a stone. Biliary sphincterotomy was made with a Fusion OMNI sphincterotome using ERBE electrocautery. There was no post-sphincterotomy bleeding. To discover objects, the biliary tree was swept with a 15 mm balloon starting at the bifurcation. Sludge was swept from the duct. One stone was removed. No stones remained. Pus was swept from the duct. Two 7 Fr by 7 and a 4 cm biliary stents with a full external pigtail and a full internal pigtail were placed into the common bile duct. Bile and pus flowed through the stents. The stents were in good position. The endoscope was withdrawn from the patient. Indomethacin 100 mg was given via suppository to decrease the risk of post-ERCP pancreatitis (PEP). Impression: - The major papilla appeared normal. - A filling defect consistent with a stone was seen on the cholangiogram. - Choledocholithiasis was found. Complete removal was accomplished by biliary sphincterotomy and balloon extraction. - A biliary sphincterotomy was performed. - The biliary tree was swept and pus was found. - Two biliary stents were placed into the common bile duct. - Indomethacin given to decrease risk of post-ERCP pancreatitis. Recommendation: - Avoid aspirin and nonsteroidal anti-inflammatory medicines for 1 week. - Clear liquid diet. - Use broad spectrum antibiotics for 2 weeks. - Repeat ERCP in 6 weeks to remove stent. Chantal Wheeler D.O. Chantal Wheeler, 06/01/2021 11:20:43 AM This report has been signed electronically. Note Initiated On: 06/01/2021 10:27 AM Number of Addenda: 0 I attest to the content of the Intraoperative Record and orders documented therein, exceptions below {[id number]}
[2021-06-01] MEDS: fentaNYL citrate 100 MCG/2 ML VIAL IV PRN ×2 (11:28→11:36)
--- NOTE | 2021-06-01 11:46 | Anesthesiology Progress Note ---
Date of Service June 01, 2021 Anesthesia Post Procedure Vital Signs Vital Signs: Temp Pulse Pulse Pulse Resp BP BP 06/01/21 11:35 62 12 101/49 L 06/01/21 11:20 64 12 112/45 L 06/01/21 11:14 36.0 C L 63 15 100/57 L 06/01/21 09:21 37 C 70 20 169/81 H 06/01/21 08:00 36.9 C 61 18 160/78 H 06/01/21 03:59 36.8 C 63 20 05/31/21 22:30 60 12 05/31/21 22:00 62 13 05/31/21 21:00 60 17 05/31/21 20:01 63 20 05/31/21 19:30 61 20 05/31/21 18:22 72 18 05/31/21 15:45 37.3 C 75 16 153/80 H BP Pulse Ox 06/01/21 11:35 99 06/01/21 11:20 99 06/01/21 11:14 98 06/01/21 09:21 97 06/01/21 08:00 96 06/01/21 03:59 142/73 H 97 05/31/21 22:30 123/70 96 05/31/21 22:00 111/57 L 96 05/31/21 21:00 135/56 L 94 05/31/21 20:01 125/48 L 94 05/31/21 19:30 151/62 H 94 05/31/21 18:22 129/72 96 05/31/21 15:45 98 Pain Intensity Bilateral Abdomen: Pain Intensity: 5 Transfer of Care Handoff Completed per policy Notes Mental Status: alert / awake / arousable Patient Amnestic to Procedure: Yes Nausea / Vomiting: adequately controlled Pain: adequately controlled Airway Patency, RR, SpO2: stable & adequate BP & HR: stable & adequate Hydration State: stable & adequate Anesthetic Complications: no major complications apparent
--- NOTE | 2021-06-01 12:13 | Fluoroscopy Report ---
[place] ERCP biliary ductal CLINICAL HISTORY: Choledocholithiasis. ERCP. COMPARISON STUDY: Abdomen and pelvis CT 05/31/2021. FLUOROSCOPY TIME: 3 minutes and 24 seconds. FINDINGS: 5 fluoroscopic spot images of the right upper quadrant were submitted. Contrast was injecte d into the common bile duct. The common bile duct appears distended. A balloon sweep was performed. T his is followed by placement of 2 common bile duct stents which appear in good position. IMPRESSION: Fluoroscopic assistance provided for ERCP as described above ACT 112: Negative or not required by law. Electronically signed by: Shmuel Jasso M.D. 06/01/2021 12:11 PM
[2021-06-01] MEDS ORDERED: INSULIN ASPART PER UNIT SC SCH (13:00)
[2021-06-01] MEDS: INSULIN GLARGINE SOLOSTAR 100 UNITS/ML 3 ML PEN SC SCH (15:08)
[2021-06-01] MEDS: SODIUM CHLORIDE 0.9% 1000ML 1,000 ML IV SCH ×2 (15:13→22:37)
[2021-06-01] MEDS: PANTOprazole 40 MG TAB PO SCH (15:14)
[2021-06-01] MEDS: FERROUS SULFATE 325 MG TAB PO SCH ×2 (15:14→18:07)
[2021-06-01] MEDS: INSULIN ASPART PER UNIT SC SCH ×3 (16:07→21:52)
--- NOTE | 2021-06-01 16:29 | Billing Data ---
Date of Service May 31, 2021 Coding Level of Care Code 32988 Initial Inpt Care Lvl 3
--- NOTE | 2021-06-01 19:14 | Hospitalist Progress Note ---
Date of Service June 01, 2021 Assessment & Plan (1) Choledocholithiasis: Plan: s/p ERCP today by [facility]. CBD stones/sludge along with purulent bile seen. s/p stone extraction and stent placement x 2. Purulence c/w cholangitis. Cont IV zosyn. Allow clears post-ERCP. LFTs in am. IVF. (2) Acute cholangitis: Plan: ERCP c/w such. IV zosyn, then PO abx at discharge. Total course x 2 weeks. Did not have blood cultures drawn at time of ER presentation; likely to be low yield at this point. (3) Acute gallstone pancreatitis: Plan: Clinically/biochemically his pancreatitis is improved. Cont restricted diet. IVF. Repeat lipase am. s/p ERCP today - see #1 above. (4) Common bile duct obstruction: Plan: See above (5) Elevated troponin: Plan: 2nd to myocardial demand ischemia in setting of #1,#2. No ischemic chest symptoms pre-hospital or here. (6) Supratherapeutic INR: Plan: s/p Vitamin K in ER. INR now 1.8. Coumadin on hold. INR in am. INR goal 2.5 to 3.5 (mech valves). INR supratherapeutic due to abnormal LFTs, poor po intake, etc. (7) Diabetes mellitus: Plan: uncontrolled adjust novolog increase lantus (8) Anticoagulant long-term use: Plan: 2nd to PAF + [facility] mech valves (9) Hypertension: Plan: Cont BB Hold FUNMILAYO (10) Paroxysmal atrial fibrillation: Plan: Tele stable. Coumadin on hold. Cont BB. l (11) CAD (coronary artery disease): Plan: Cont BB Resume asa when ok with GI Statin - continue it if LFTs trending down See #12 (12) Positive cardiac stress test: Plan: 04/2021 + stress test; LAD territory ischemia vs infarct s/p heart cath pre-op 2013 with moderate LAD lesion and OM disease if patient were to have lap joanie he would be high risk for perioperative acute WI, PAF, etc. 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 He was resting comfortably on the med/tele unit. His abd pain was significantly better. c/o bloating. no chest pain or dyspnea. Dr Shell from gen surg had called him to state that we would be holding off on surgery (lap joanie) due to recently + stress test (04/2021). Review of Systems Review of Systems: gen - no fevers CV - no cp, no orthopnea pulm - no cough or dyspnea GI - no N/V Physical Exam Physical Exam: gen - NAD neck - [facility], s1 s2, no murmur; RRR lungs - CTA b/l abd - mildly distended, BS+, NT, no HSM ext - no edema, pulses 2+ b/l skin - no jaundice Results & Data Results & Data ([facility]) Vital Signs (Past 12 Hours) Vital Signs Temp Pulse Pulse Pulse Resp BP BP 06/01/21 17:30 67 06/01/21 17:00 36.6 C 60 16 165/82 H 06/01/21 13:15 36.7 C 66 18 164/86 H 06/01/21 12:45 36.6 C 63 18 162/87 H 06/01/21 12:30 36.6 C 63 18 161/60 H 06/01/21 11:55 36.4 C L 63 12 151/72 H 06/01/21 11:45 60 12 163/76 H 06/01/21 11:35 62 12 101/49 L 06/01/21 11:20 64 12 112/45 L 06/01/21 11:14 36.0 C L 63 15 100/57 L 06/01/21 09:21 37 C 70 20 169/81 H 06/01/21 08:00 36.9 C 61 18 160/78 H Pulse Ox 06/01/21 17:30 06/01/21 17:00 96 06/01/21 13:15 95 06/01/21 12:45 94 06/01/21 12:30 94 06/01/21 11:55 94 06/01/21 11:45 95 06/01/21 11:35 99 06/01/21 11:20 99 06/01/21 11:14 98 06/01/21 09:21 97 12/15/21 08:00 96 Laboratory Results Laboratory Results - last 24 hr 05/31/21 06/01/21 06/01/21 21:50 00:10 05:45 WBC RBC Hgb Hct MCV MCH MCHC RDW Std Deviation RDW Coeff of Karan Plt Count MPV PT INR Sodium Potassium Chloride Carbon Dioxide Anion Gap BUN Creatinine Est Cr Clr Drug Dosing Est GFR ( Amer) Est GFR (Non-Af Amer) BUN/Creatinine Ratio Glucose POC Glucose 223 H Estimat Average Glucose 154 Hemoglobin A1c 7.0 H Calcium Total Bilirubin AST ALT Alkaline Phosphatase Troponin I 0.187 H* Total Protein Albumin Globulin Albumin/Globulin Ratio Lipase 06/01/21 06/01/21 06/01/21 05:45 05:45 05:45 WBC 5.13 RBC 3.71 L Hgb 11.1 L Hct 33.2 L MCV 89.5 MCH 29.9 MCHC 33.4 RDW Std Deviation 44.0 RDW Coeff of Karan 13.4 Plt Count 193 MPV 9.8 PT INR Sodium 132 L Potassium 3.5 Chloride 98 Carbon Dioxide 27 Anion Gap 7.0 BUN 19 H Creatinine 0.98 Est Cr Clr Drug Dosing 78.5 Est GFR ( Amer) 90.8 Est GFR (Non-Af Amer) 78.4 BUN/Creatinine Ratio 18.9 Glucose 143 H POC Glucose Estimat Average Glucose Hemoglobin A1c Calcium 8.9 Total Bilirubin 6.1 H AST 46 H ALT 63 Alkaline Phosphatase 226 H D Troponin I 0.184 H* Total Protein 5.9 L D Albumin 2.5 L Globulin 3.4 Albumin/Globulin Ratio 0.7 L Lipase 2113 H 06/01/21 06/01/21 06/01/21 07:37 11:17 14:17 WBC RBC Hgb Hct MCV MCH MCHC RDW Std Deviation RDW Coeff of Karan Plt Count MPV PT 17.5 H INR 1.8 H Sodium Potassium Chloride Carbon Dioxide Anion Gap BUN Creatinine Est Cr Clr Drug Dosing Est GFR ( Amer) Est GFR (Non-Af Amer) BUN/Creatinine Ratio Glucose POC Glucose 146 H Estimat Average Glucose Hemoglobin A1c Calcium Total Bilirubin AST ALT Alkaline Phosphatase Troponin I 0.136 H* Total Protein Albumin Globulin Albumin/Globulin Ratio Lipase 06/01/21 17:38 WBC RBC Hgb Hct MCV MCH MCHC RDW Std Deviation RDW Coeff of Karan Plt Count MPV PT INR Sodium Potassium Chloride Carbon Dioxide Anion Gap BUN Creatinine Est Cr Clr Drug Dosing Est GFR ( Amer) Est GFR (Non-Af Amer) BUN/Creatinine Ratio Glucose POC Glucose 251 H Estimat Average Glucose Hemoglobin A1c Calcium Total Bilirubin AST ALT Alkaline Phosphatase Troponin I Total Protein Albumin Globulin Albumin/Globulin Ratio Lipase PG Care Time/CCT Total # of Minutes Spent Total Time Spent with Patient: Total time spent is greater than 50% in coordination of care (as documented) at patient's floor/unit and/or counseling patient: Coding Level of Care Code 26502 Subseq Hosp Care Lvl 3 Diagnoses Choledocholithiasis K80.50 Acute gallstone pancreatitis K85.10 Common bile duct obstruction K83.1 Elevated troponin R77.8 Supratherapeutic INR R79.1 Diabetes mellitus E11.42; Z79.4 Diabetes mellitus complication detail: with polyneuropathy Diabetes mellitus complication status: with neurologic complications Diabetes mellitus adjunct faculty for medical terminology insulin use: with adjunct faculty for medical terminology use Diabetes mellitus type: type 2 Anticoagulant long-term use Z79.01 Hypertension I10 Paroxysmal atrial fibrillation I48.0 CAD (coronary artery disease) I25.10 Positive cardiac stress test R94.39 Mechanical heart valve present Z95.2 Acute cholangitis K83.09 (1) Diabetes mellitus Diabetes mellitus complication detail: with polyneuropathy Diabetes mellitus complication status: with neurologic complications Diabetes mellitus adjunct faculty for medical terminology insulin use: with adjunct faculty for medical terminology use Diabetes mellitus type: type 2 Qualified Code(s): E11.42 - Type 2 diabetes mellitus with diabetic polyneuropathy; Z79.4 - intermediate (current) use of insulin
[2021-06-01] MEDS ORDERED: INSULIN GLARGINE SOLOSTAR 100 UNITS/ML 3 ML PEN SC SCH (21:00)
[2021-06-01] MEDS ORDERED: INSULIN HUMAN REGULAR PER UNIT 5 UNITS in SYRINGE 4.95 ML IV ONE (21:15)
[2021-06-02] MEDS: PIPERACILLIN/TAZOBACTAM 3.375 GM in DEXTROSE 5% 100 ML IV SCH ×3 (05:07→21:17)
--- NOTE | 2021-06-02 07:44 | Surgery Progress Note ---
Date of Service June 02, 2021 Assessment & Plan (1) Acute cholangitis: Plan: Patient appears to be stable Advance diet per GI/medical team We will postpone laparoscopic cholecystectomy likely for several weeks Would like to proceed prior to stent removal We will follow up in office-have placed information in the discharge We will continue to follow him in the hospital Admission and Anticipated Discharge Date Admission Date: May 31, 2021 Subjective Patient seems to have done well overnight His vital signs are stable He says he has some mild abdominal discomfort Laboratories are pending Review of Systems Review of Systems: All systems reviewed & are unremarkable except as noted in HPI & below Physical Exam Physical Exam: Patient is awake and alert he is in no distress his affect is normal Constitutional: well developed and well nourished; no acute distress Eyes: + anicteric sclerae Respiratory: normal respiratory effort; no respiratory distress Cardiovascular: Rate/Rhythm: + irregularly irregular Chest (Breasts): Chest: + pacemaker Gastrointestinal (Abdomen): Inspection/Auscultation: + abdomen distended Mild discomfort to palpation Musculoskeletal: Head/Neck/Chest: head atraumatic Skin: no rashes, warm and dry Neurologic: awake Psychiatric: Orientation: alert Results & Data ([facility]) Vital Signs (Past 12 Hours) Vital Signs Temp Pulse Pulse Resp BP BP Pulse Ox 06/02/21 07:22 64 06/02/21 03:00 36.7 C 61 18 114/59 L 92 06/01/21 23:08 37.0 C 65 18 126/74 95 06/01/21 22:30 64 PG Care Time/CCT Total # of Minutes Spent Total Time Spent with Patient: Total time spent is greater than 50% in coordination of care (as documented) at patient's floor/unit and/or counseling patient: Coding Level of Care Code 18360 Inpt Consult Level 3 Diagnoses Acute cholangitis K83.09
[2021-06-02 08:21] LABS: Hematocrit (blood only) 36.8 % (42-52); Hemoglobin 12.4 g/dL (14.0-18.0); Mean Corpuscular Hemoglobin 30.1 pg (25-34); Mean Corpuscular Hgb Conc 33.7 g/dL (32-36); Mean Corpuscular Volume 89.3 fL (80-100); Mean Platelet Volume 9.9 fL (7.4-10.4); Platelet Count 272 K/uL (130-400); RDW Coefficient of Variation 13.4 % (11.5-14.5); RDW Standard Deviation 44.1 fL (36.4-46.3); Red Blood Count 4.12 M/uL (4.7-6.1)
[2021-06-02] MEDS: INSULIN ASPART PER UNIT SC SCH ×4 (08:30→21:33)
[2021-06-02] MEDS: MoRPHine SULFATE 2 MG/ML CARP IV PRN ×4 (08:31→21:18)
[2021-06-02] MEDS: FERROUS SULFATE 325 MG TAB PO SCH ×2 (08:31→17:13)
[2021-06-02] MEDS: PANTOprazole 40 MG TAB PO SCH (08:32)
[2021-06-02] MEDS: METOPROLOL TARTRATE 25 MG TAB PO SCH ×2 (08:32→21:14)
[2021-06-02 08:58] LABS: Albumin Globulin Ratio 0.7 (0.9-2); Albumin Level 2.7 gm/dl (3.4-5.0); BUN Creatinine Ratio 19.4 (10-20); Bilirubin,Total 5.8 mg/dl (0.2-1); Calcium 9.2 mg/dl (8.5-10.1); Est GFR (African American) 49.8 ml/min; Globulin 3.7 gm/dl (2.5-4.0); Total Protein 6.4 gm/dl (6.4-8.2)
[2021-06-02] MEDS ORDERED: INSULIN GLARGINE SOLOSTAR 100 UNITS/ML 3 ML PEN SC SCH ×2 (09:00→21:00)
--- NOTE | 2021-06-02 10:31 | Gastroenterology Progress Note ---
Date of Service June 02, 2021 Assessment & Plan (1) Acute cholangitis: (2) Choledocholithiasis: Plan: 70 y/o male admitted w/ abd pain, w/u concerning for choledocholithiasis. He underwent ERCP yesterday notable for sludge and stone material within the bulb in addition to pus consistent with cholangitis. A biliary sphincterotomy was performed in 2 biliary stents were placed. Today is feeling improved, LFTs trending down as is lipase. Abd soft, he feels constipated. He's afebrile, VSS. He has tolerated clears. ERCP 06/01/21: - The major papilla appeared normal. - A filling defect consistent with a stone was seen on the cholangiogram. - Choledocholithiasis was found. Complete removal was accomplished by biliary sphincterotomy and balloon extraction. - A biliary sphincterotomy was performed. - The biliary tree was swept and pus was found. - Two biliary stents were placed into the common bile duct. - Indomethacin given to decrease risk of post-ERCP pancreatitis. Recommendation: - Avoid aspirin and nonsteroidal anti-inflammatory medicines for 1 week. - Clear liquid diet. - Use broad spectrum antibiotics for 2 weeks. - Repeat ERCP in 6 weeks to remove stent. May advance to low-fat diet as tolerated Encouraged OOB as able Bowel regimen as needed Continue IV hydration Please continue antibiotic coverage x 2 weeks given cholangitis Surgical service planning cholecystectomy in several weeks Please avoid use of nonsteroidals for 1 week. Repeat ERCP in 6 weeks to remove stent GI will sign off, please call with questions Admission and Anticipated Discharge Date Admission Date: May 31, 2021 Supervising Physician Co-Signing Physician Notes ,I saw and evaluated the patient. He appears to be doing well. Would recommend advancing his diet as tolerated today. Would recommend a 2-week course of antibiotics. This patient will be scheduled for a repeat ERCP in 6 to 8 weeks for biliary stent removal. Hopefully he will have his gallbladder removed for that time we can get surgical input for this. Please call with any questions or concerns, GI to sign off Subjective Patient seen and examined, chart reviewed. Overnight feels well, better than when he came in. Has some lower abd "full" feeling - feels constipated. Passing flatus. No n/v, upper abd pain, fever, chills, SOB, cough. Making urine. Has been OOB a little. Tolerating clears; wants to eat more. Review of Systems Review of Systems: All systems reviewed & are unremarkable except as noted in HPI & below Physical Exam Constitutional: WD/WN, vitals as above Eyes: PERRL, conjunctivae normal, anicteric sclerae Neck: trachea midline, no thyromegaly Cardiovascular: Rate/Rhythm: regular rate and regular rhythm crisp heart valve sounds Gastrointestinal (Abdomen): normal bowel sounds, soft, nontender, no hepatosplenomegaly Skin: no rashes, warm and dry Psychiatric: A+Ox3, euthymic affect Results & Data ([facility]) Vital Signs (Past 12 Hours) Vital Signs Temp Pulse Pulse Resp BP BP Pulse Ox 06/02/21 07:42 36.8 C 67 18 119/67 95 06/02/21 07:22 64 06/02/21 03:00 36.7 C 61 18 114/59 L 92 06/01/21 23:08 37.0 C 65 18 126/74 95 06/01/21 22:30 64 Laboratory Results 06/02/21 06/02/21 06/02/21 Range/Units 07:43 07:43 07:43 WBC 6.90 (4.8-10.8) K/uL RBC 4.12 L (4.7-6.1) M/uL Hgb 12.4 L (14.0-18.0) g/dL Hct 36.8 L (42-52) % MCV 89.3 (80-100) fL MCH 30.1 (25-34) pg MCHC 33.7 (32-36) g/dL RDW Std Deviation 44.1 (36.4-46.3) fL RDW Coeff of Karan 13.4 (11.5-14.5) % Plt Count 272 (130-400) K/uL MPV 9.9 (7.4-10.4) fL PT 19.0 H (9.0-12.0) Seconds INR 2.0 H (0.9-1.1) Sodium 133 L (136-145) mmol/L Potassium 4.0 (3.5-5.1) mmol/L Chloride 99 (98-107) mmol/L Carbon Dioxide 24 (21-32) mmol/L Anion Gap 10.0 (3-11) BUN 31 H D (7-18) mg/dl Creatinine 1.61 H D (0.6-1.4) mg/dl Est Cr Clr Drug Dosing 48.0 ml/min Est GFR ( Amer) 49.8 ml/min Est GFR (Non-Af Amer) 43.0 ml/min BUN/Creatinine Ratio 19.4 (10-20) Glucose 180 H (70-99) mg/dl POC Glucose (70-99) mg/dl Calcium 9.2 (8.5-10.1) mg/dl Total Bilirubin 5.8 H (0.2-1) mg/dl AST 45 H (15-37) U/L ALT 63 (12-78) Alkaline Phosphatase 252 H (45-117) U/L Troponin I (0-0.045) ng/ml Total Protein 6.4 (6.4-8.2) gm/dl Albumin 2.7 L (3.4-5.0) gm/dl Globulin 3.7 (2.5-4.0) gm/dl Albumin/Globulin Ratio 0.7 L (0.9-2) Lipase 718 H (73-393) U/L 06/02/21 06/01/21 06/01/21 Range/Units 07:34 20:28 20:26 WBC (4.8-10.8) K/uL RBC (4.7-6.1) M/uL Hgb (14.0-18.0) g/dL Hct (42-52) % MCV (80-100) fL MCH (25-34) pg MCHC (32-36) g/dL RDW Std Deviation (36.4-46.3) fL RDW Coeff of Karan (11.5-14.5) % Plt Count (130-400) K/uL MPV (7.4-10.4) fL PT (9.0-12.0) Seconds INR (0.9-1.1) Sodium (136-145) mmol/L Potassium (3.5-5.1) mmol/L Chloride (98-107) mmol/L Carbon Dioxide (21-32) mmol/L Anion Gap (3-11) BUN (7-18) mg/dl Creatinine (0.6-1.4) mg/dl Est Cr Clr Drug Dosing ml/min Est GFR ( Amer) ml/min Est GFR (Non-Af Amer) ml/min BUN/Creatinine Ratio (10-20) Glucose (70-99) mg/dl POC Glucose 166 H 292 H 310 H* (70-99) mg/dl Calcium (8.5-10.1) mg/dl Total Bilirubin (0.2-1) mg/dl AST (15-37) U/L ALT (12-78) Alkaline Phosphatase (45-117) U/L Troponin I (0-0.045) ng/ml Total Protein (6.4-8.2) gm/dl Albumin (3.4-5.0) gm/dl Globulin (2.5-4.0) gm/dl Albumin/Globulin Ratio (0.9-2) Lipase (73-393) U/L 06/01/21 06/01/21 06/01/21 Range/Units 17:38 14:17 11:17 WBC (4.8-10.8) K/uL RBC (4.7-6.1) M/uL Hgb (14.0-18.0) g/dL Hct (42-52) % MCV (80-100) fL MCH (25-34) pg MCHC (32-36) g/dL RDW Std Deviation (36.4-46.3) fL RDW Coeff of Karan (11.5-14.5) % Plt Count (130-400) K/uL MPV (7.4-10.4) fL PT (9.0-12.0) Seconds INR (0.9-1.1) Sodium (136-145) mmol/L Potassium (3.5-5.1) mmol/L Chloride (98-107) mmol/L Carbon Dioxide (21-32) mmol/L Anion Gap (3-11) BUN (7-18) mg/dl Creatinine (0.6-1.4) mg/dl Est Cr Clr Drug Dosing ml/min Est GFR ( Amer) ml/min Est GFR (Non-Af Amer) ml/min BUN/Creatinine Ratio (10-20) Glucose (70-99) mg/dl POC Glucose 251 H 146 H (70-99) mg/dl Calcium (8.5-10.1) mg/dl Total Bilirubin (0.2-1) mg/dl AST (15-37) U/L ALT (12-78) Alkaline Phosphatase (45-117) U/L Troponin I 0.136 H* (0-0.045) ng/ml Total Protein (6.4-8.2) gm/dl Albumin (3.4-5.0) gm/dl Globulin (2.5-4.0) gm/dl Albumin/Globulin Ratio (0.9-2) Lipase (73-393) U/L
[2021-06-02] MEDS: SODIUM CHLORIDE 0.9% 1000ML 1,000 ML IV SCH ×2 (10:44→23:25)
[2021-06-02] MEDS ORDERED: ISOSORBIDE MONO EXTENDED REL 30 MG TABCR PO ONE (14:00)
--- NOTE | 2021-06-02 20:33 | Hospitalist Progress Note ---
Date of Service June 02, 2021 Assessment & Plan (1) Choledocholithiasis: Plan: POD #1 - s/p ERCP by Lenora Kim. CBD stones/sludge along with purulent bile seen. s/p stone extraction and stent placement x 2. Purulence c/w cholangitis. Cont IV zosyn. LFTs modestly improved today. Cont IVF. (2) Gallstones: Plan: patient has gallstones in the gall bladder. in light of this and gallstone pancreatitis/choledocholithiasis ideally he have lap joanie. However, he is high risk for surgery due to known CAD and chest pains along with + stress test in 04/2021. No lap joanie at this time. Have lap joanie at [facility] or [facility]? [facility]? (3) Acute cholangitis: Plan: ERCP c/w such. IV zosyn, then PO abx at discharge. Total course x 2 weeks. Did not have blood cultures drawn at time of ER presentation. (4) Acute gallstone pancreatitis: Plan: Improving, lipase now <1000. Pain largely resolved. Repeat lipase in am. Cont IVF. Seems to have a mild ileus - leave on clear liquid diet. (5) Common bile duct obstruction: Plan: See above (6) Elevated troponin: Plan: 2nd to myocardial demand ischemia in setting of #1,#2. He has known CAD, but did not have ischemic symptoms just prior to admission (7) Supratherapeutic INR: Plan: s/p Vitamin K in ER. INR now 2 Coumadin on hold. INR in am. INR goal 2.5 to 3.5 (mech valves) when coumadin is resumed. INR supratherapeutic due to abnormal LFTs, poor po intake, etc. Ideally we hold off on heparin bridge due to increased risk of post- sphincterotomy bleeding. (8) Diabetes mellitus: Plan: uncontrolled adjust novolog increase lantus to 25 units BID (9) Anticoagulant long-term use: Plan: 2nd to PAF + [facility] mech valves (10) Hypertension: Plan: Cont BB Hold FUNMILAYO Add back imdur 30mg daily due to chest pain today (11) Paroxysmal atrial fibrillation: Plan: Tele stable. Coumadin on hold. Cont BB. (12) CAD (coronary artery disease): Plan: Cont BB Resume asa when ok with GI - likely resume in am Remains on statin agent -- can continue since LFTs trending down See #12 Patient had episode of angina this am with minimal activity I informed his primary rate and cost analyst, Dr Marie, regarding his chest pain ?heart cath this admission due to positive stress test, symptoms, etc? (13) Positive cardiac stress test: Plan: 04/2021 + stress test; LAD territory ischemia vs infarct s/p heart cath pre-op 2013 with moderate LAD lesion and OM disease if patient were to have lap joanie he would be high risk for perioperative acute [place], PAF, etc. Dr Shell aware of positive stress test recently Lap joanie to be delayed resume asa in am if blood counts stable, etc statin (14) Mechanical heart valve present: Plan: MV, AV [facility] (15) Acute kidney injury: Plan: baseline Cr about 1 today 1.6 likely ATN in setting of his cholangitis cont supportive care recheck BMP am Plan: updated extensively by phone this evening care d/w Dr Marie, cardiology Admission and Anticipated Discharge Date Admission Date: May 31, 2021 Subjective tele stable overnight patient c/o abdominal bloating not passing much in the way of flatus no nausea or emesis appetite was not the greatest today he has very mild RLQ pain as well he also reports that while washing up in the bathroom this and walking around the room he had "angina" that self-resolved pain was left-sided chest similar to past episodes of chest pain Review of Systems Review of Systems: gen - no fevers or chills, mild appetite loss CV - chest pain; no orthopnea pulm - no cough, no congestion, no dyspnea, no MEYER GI - no vomiting; abd bloating Physical Exam Physical Exam: gen - NAD, very pleasant eyes - icterus present neck - no [facility], s1 s2, no murmur; RRR lungs - CTA b/l abd - mildly distended, BS+ but decreased, NT, no HSM ext - no edema, pulses 2+ b/l skin - scant jaundice face Results & Data Results & Data ([facility]) Vital Signs (Past 12 Hours) Vital Signs Temp Pulse Pulse Pulse Resp BP Pulse Ox 06/02/21 19:00 36.9 C 47 L 18 116/63 95 06/02/21 16:00 66 06/02/21 15:54 36.7 C 68 18 124/72 96 06/02/21 11:36 36.8 C 63 18 115/69 97 Laboratory Results Laboratory Results - last 24 hr 06/01/21 06/01/21 06/02/21 20:26 20:28 07:34 WBC RBC Hgb Hct MCV MCH MCHC RDW Std Deviation RDW Coeff of Karan Plt Count MPV PT INR Sodium Potassium Chloride Carbon Dioxide Anion Gap BUN Creatinine Est Cr Clr Drug Dosing Est GFR ( Amer) Est GFR (Non-Af Amer) BUN/Creatinine Ratio Glucose POC Glucose 310 H* 292 H 166 H Calcium Total Bilirubin AST ALT Alkaline Phosphatase Total Protein Albumin Globulin Albumin/Globulin Ratio Lipase 06/02/21 06/02/21 06/02/21 07:43 07:43 07:43 WBC 6.90 RBC 4.12 L Hgb 12.4 L Hct 36.8 L MCV 89.3 MCH 30.1 MCHC 33.7 RDW Std Deviation 44.1 RDW Coeff of Karan 13.4 Plt Count 272 MPV 9.9 PT 19.0 H INR 2.0 H Sodium 133 L Potassium 4.0 Chloride 99 Carbon Dioxide 24 Anion Gap 10.0 BUN 31 H D Creatinine 1.61 H D Est Cr Clr Drug Dosing 48.0 Est GFR ( Amer) 49.8 Est GFR (Non-Af Amer) 43.0 BUN/Creatinine Ratio 19.4 Glucose 180 H POC Glucose Calcium 9.2 Total Bilirubin 5.8 H AST 45 H ALT 63 Alkaline Phosphatase 252 H Total Protein 6.4 Albumin 2.7 L Globulin 3.7 Albumin/Globulin Ratio 0.7 L Lipase 718 H 06/02/21 06/02/21 11:24 16:40 WBC RBC Hgb Hct MCV MCH MCHC RDW Std Deviation RDW Coeff of Karan Plt Count MPV PT INR Sodium Potassium Chloride Carbon Dioxide Anion Gap BUN Creatinine Est Cr Clr Drug Dosing Est GFR ( Amer) Est GFR (Non-Af Amer) BUN/Creatinine Ratio Glucose POC Glucose 262 H 266 H Calcium Total Bilirubin AST ALT Alkaline Phosphatase Total Protein Albumin Globulin Albumin/Globulin Ratio Lipase PG Care Time/CCT Total # of Minutes Spent Total Time Spent with Patient: Total time spent is greater than 50% in coordination of care (as documented) at patient's floor/unit and/or counseling patient: Coding Level of Care Code 45841 Subseq Hosp Care Lvl 3 Diagnoses Choledocholithiasis K80.50 Acute cholangitis K83.09 Acute gallstone pancreatitis K85.10 Common bile duct obstruction K83.1 Elevated troponin R77.8 Supratherapeutic INR R79.1 Diabetes mellitus E11.42; Z79.4 Diabetes mellitus complication detail: with polyneuropathy Diabetes mellitus complication status: with neurologic complications Diabetes mellitus marine oil terminal superintendent insulin use: with marine oil terminal superintendent use Diabetes mellitus type: type 2 Anticoagulant long-term use Z79.01 Hypertension I10 Paroxysmal atrial fibrillation I48.0 CAD (coronary artery disease) I25.10 Positive cardiac stress test R94.39 Mechanical heart valve present Z95.2 Acute kidney injury N17.9 Gallstones K80.20 (1) Diabetes mellitus Diabetes mellitus complication detail: with polyneuropathy Diabetes mellitus complication status: with neurologic complications Diabetes mellitus marine oil terminal superintendent insulin use: with halfway use Diabetes mellitus type: type 2 Qualified Code(s): E11.42 - Type 2 diabetes mellitus with diabetic polyneuropathy; Z79.4 - halfway (current) use of insulin
[2021-06-02] MEDS: ROSUVASTATIN CALCIUM 10 MG TAB PO SCH (21:14)
[2021-06-02] MEDS: INSULIN GLARGINE SOLOSTAR 100 UNITS/ML 3 ML PEN SC SCH (21:34)
[2021-06-03] MEDS: PIPERACILLIN/TAZOBACTAM 3.375 GM in DEXTROSE 5% 100 ML IV SCH ×3 (04:46→20:51)
[2021-06-03 08:12] LABS: Hematocrit (blood only) 34.3 % (42-52); Hemoglobin 11.3 g/dL (14.0-18.0); Mean Corpuscular Hemoglobin 29.7 pg (25-34); Mean Corpuscular Hgb Conc 32.9 g/dL (32-36); Mean Platelet Volume 9.3 fL (7.4-10.4); Platelet Count 272 K/uL (130-400); RDW Coefficient of Variation 13.5 % (11.5-14.5); RDW Standard Deviation 44.7 fL (36.4-46.3); Red Blood Count 3.81 M/uL (4.7-6.1); White Blood Count 6.18 K/uL (4.8-10.8)
[2021-06-03] MEDS: METOPROLOL TARTRATE 25 MG TAB PO SCH ×2 (08:26→20:52)
[2021-06-03] MEDS: ISOSORBIDE MONO EXTENDED REL 30 MG TABCR PO SCH (08:27)
[2021-06-03] MEDS: FERROUS SULFATE 325 MG TAB PO SCH ×2 (08:27→16:25)
[2021-06-03] MEDS: PANTOprazole 40 MG TAB PO SCH (08:27)
[2021-06-03 08:29] LABS: INR 2.6 (0.9-1.1); Prothrombin Time 24.2 Seconds (9.0-12.0)
[2021-06-03] MEDS: INSULIN ASPART PER UNIT SC SCH ×4 (08:29→20:51)
[2021-06-03 08:35] LABS: Albumin Level 2.7 gm/dl (3.4-5.0); BUN Creatinine Ratio 18.3 (10-20); Potassium 3.8 mmol/L (3.5-5.1)
[2021-06-03] MEDS: INSULIN GLARGINE SOLOSTAR 100 UNITS/ML 3 ML PEN SC SCH ×2 (08:36→20:52)
[2021-06-03 08:49] LABS: Albumin Globulin Ratio 0.7 (0.9-2); Bilirubin,Total 3.3 mg/dl (0.2-1); Globulin 3.7 gm/dl (2.5-4.0); Total Protein 6.4 gm/dl (6.4-8.2)
--- NOTE | 2021-06-03 11:52 | XRay Report ---
PA CHEST WITH ABDOMINAL SERIES CLINICAL HISTORY: Abdominal bloating. Constipation. FINDINGS: A PA chest radiograph is compared to study dated 06/28/2017. The patient is status post midline sterno carly and cardiac valve surgery. A 2-lead cardiac pacemaker is unchanged in position and partially obs cures the left upper chest. The heart is enlarged noting atherosclerotic calcification of the thoraci c aorta. The pulmonary vasculature is noncongested. Atelectasis is noted the lung bases and there is chronic elevation of the right hemidiaphragm. The lungs and pleural spaces are otherwise clear. No pn eumothorax is seen. The skeletal structures are osteopenic. The bony thorax is grossly intact. Supine and erect abdominal radiographs are correlated with abdominal CT dated 05/31/2021. Biliary greg nts are in place. There is a nonobstructed abdominal bowel gas pattern. Moderate fecal retention is s een throughout the colon. No evidence of intraperitoneal free air is identified. There are no abnorma l abdominal calcifications. Numerous phleboliths are seen in the pelvis. The lumbosacral spine and [place] pelvis appear intact. IMPRESSION: 1. Cardiomegaly and cardiac pacemaker. There is no radiographic evidence of congestive failure. 2. There is no airspace consolidation typical for pneumonia or pleural effusion. 3. Nonobstructed abdominal bowel gas pattern. 4. Biliary stents are in place. ACT 112: Negative or not required by law. Electronically signed by: Todd Guerrero M.D. 06/03/2021 11:51 AM
[2021-06-03] MEDS: SODIUM CHLORIDE 0.9% 1000ML 1,000 ML IV SCH (12:09)
[2021-06-03] MEDS ORDERED: bisacodyL 10 MG SUPP PR STA (13:45)
--- NOTE | 2021-06-03 13:46 | Hospitalist Progress Note ---
Date of Service June 03, 2021 Assessment & Plan (1) Choledocholithiasis: Plan: POD #2 - [facility] CBD stones/sludge along with purulent bile seen. s/p stone extraction and stent placement x 2. Purulence c/w cholangitis. Cont IV zosyn. LFTs again improved today. Cont IVF but likely d/c them later tonight. 14-day course of IV/PO antibiotics advised. Day #3 of such today. (2) Gallstones: Plan: patient has gallstones in the gall bladder. in light of this and gallstone pancreatitis/choledocholithiasis ideally he should have lap joanie. However, he is high risk for surgery due to known CAD and chest pains along with + stress test in 04/2021. No lap joanie at this time until cardiac status is optimized. Appreciate Dr Shell consultation and assistance. (3) Acute cholangitis: Plan: ERCP c/w such. IV zosyn, then PO abx at discharge. Total course x 2 weeks. Did not have blood cultures drawn at time of ER presentation. (4) Acute gallstone pancreatitis: Plan: Improving, lipase now <500. Pain resolved. Repeat lipase in am. Cont IVF this am/afternoon then d/c them later tonight. x-rays of abdomen today w/o ileus - constipation seen. Can d/c IV fluids later tonight. Cont low fat diet. (5) Common bile duct obstruction: Plan: See above (6) Elevated troponin: Plan: 2nd to myocardial demand ischemia in setting of #1,#2. He has known CAD, but did not have ischemic symptoms just prior to admission (7) Supratherapeutic INR: Plan: s/p Vitamin K in ER. INR had drifted down to 1.8, now 2.6 today despite coumadin being on hold. INR supratherapeutic due to abnormal LFTs in the setting of poor oral intake. Ideally no heparin bridge due to increased risk of post-sphincterotomy bleeding. INR am. (8) Diabetes mellitus: Plan: uncontrolled adjust novolog once again increase his lantus to 25 units BID (9) Anticoagulant long-term use: Plan: 2nd to PAF + [facility] mech valves INR goal 2.5 to 3.5 see above (10) Hypertension: Plan: Cont BB Hold FUNMILAYO due to KIRSTEN Cont imdur 30mg daily due to recent chest pains (11) Paroxysmal atrial fibrillation: Plan: Tele stable. Coumadin on hold. Cont BB. (12) CAD (coronary artery disease): Plan: Cont BB Remains on statin agent -- can continue since LFTs trending down Cont imdur Holding FUNMILAYO Resume aspirin in am patient with known CAD - had heart cath in 2013 Patient had episode of angina yesterday am with minimal activity I informed his primary dough sheeter, Dr Marie, regarding his chest pain given + stress test in April and current symptoms - Dr Marie has advised cardiac cath and is willing to do so on Sunday additionally, the heart cath will help us plan his future lap joanie (13) Positive cardiac stress test: Plan: 04/2021 + stress test; LAD territory ischemia vs infarct s/p heart cath pre-op 2013 with moderate LAD lesion and OM disease if patient were to have lap joanie he would be high risk for perioperative acute [place], PAF, etc. Dr Shell aware of positive stress test recently and need for heart cath Lap joanie to be delayed for now heart cath on Sunday by Dr Marie resume asa in am resumed statin as LFTs are stable and trending down (14) Mechanical heart valve present: Plan: MV, AV surgery performed at [facility] (15) Acute kidney injury: Plan: baseline Cr about 1 peak Cr 1.6 now 1.4 improving likely ATN in setting of his cholangitis cont supportive care recheck BMP am (16) NSVT (nonsustained ventricular tachycardia): Plan: as seen on tele today no symptoms request pacemaker interrogation to see if he has had other runs of such K, Mag wnl most recent echo with preserved EF cont metoprolol BID (17) Constipation: Plan: x-rays obtain -- no ileus, but constipation present schedule miralax Plan: updated extensively by phone yesterday evening care d/w Dr Marie, cardiology, once again today re: heart cath on Sunday Admission and Anticipated Discharge Date Admission Date: May 31, 2021 Subjective tele - near 20-beat run of asymptomatic VT overnight patient still is constipated & bloated due to such his appetite is not robust has mild abdominal discomfort in the lower abdomen no nausea/emesis is passing more flatus than previous denies fevers denies chest pain denies dyspnea patient has decided that he wants to have his heart cath here at [facility] with Dr Marie Review of Systems Review of Systems: gen - no fevers/chills cv - no chest pain, no palpitations pulm - no cough, no dyspnea at rest, no MEYER GI - bloating and constipation; no N/V Physical Exam Physical Exam: gen - NAD, very pleasant, looks better today eyes - icterus present neck - no JVD heart [facility] sound, s1 s2, no murmur; RRR lungs - CTA b/l abd - mildly distended but not as much as previous, BS+, NT, no HSM ext - no edema, pulses 2+ b/l skin - near-resolved jaundice Results & Data Results & Data ([facility]) Vital Signs (Past 12 Hours) Vital Signs Temp Pulse Pulse Pulse Resp BP BP 06/03/21 11:00 37.0 C 68 18 122/68 06/03/21 08:00 37.0 C 67 19 130/64 06/03/21 07:35 67 06/03/21 04:00 36.7 C 63 18 106/52 L Pulse Ox 06/03/21 11:00 96 06/03/21 08:00 95 06/03/21 07:35 06/03/21 04:00 95 Laboratory Results Laboratory Results - last 24 hr 06/02/21 06/02/21 06/03/21 16:40 20:31 07:27 WBC RBC Hgb Hct MCV MCH MCHC RDW Std Deviation RDW Coeff of Karan Plt Count MPV PT INR Sodium Potassium Chloride Carbon Dioxide Anion Gap BUN Creatinine Est Cr Clr Drug Dosing Est GFR ( Amer) Est GFR (Non-Af Amer) BUN/Creatinine Ratio Glucose POC Glucose 266 H 253 H 114 H Calcium Total Bilirubin AST ALT Alkaline Phosphatase Total Protein Albumin Globulin Albumin/Globulin Ratio Lipase 06/03/21 06/03/21 06/03/21 07:59 07:59 07:59 WBC 6.18 RBC 3.81 L Hgb 11.3 L Hct 34.3 L MCV 90.0 MCH 29.7 MCHC 32.9 RDW Std Deviation 44.7 RDW Coeff of Karan 13.5 Plt Count 272 MPV 9.3 PT 24.2 H INR 2.6 H Sodium 134 L Potassium 3.8 Chloride 100 Carbon Dioxide 26 Anion Gap 8.0 BUN 26 H Creatinine 1.42 H Est Cr Clr Drug Dosing 55.0 Est GFR ( Amer) 58.0 Est GFR (Non-Af Amer) 50.0 BUN/Creatinine Ratio 18.3 Glucose 125 H POC Glucose Calcium 9.0 Total Bilirubin 3.3 H AST 104 H ALT 60 Alkaline Phosphatase 227 H Total Protein 6.4 Albumin 2.7 L Globulin 3.7 Albumin/Globulin Ratio 0.7 L Lipase 546 H 06/03/21 11:51 WBC RBC Hgb Hct MCV MCH MCHC RDW Std Deviation RDW Coeff of Karan Plt Count MPV PT INR Sodium Potassium Chloride Carbon Dioxide Anion Gap BUN Creatinine Est Cr Clr Drug Dosing Est GFR ( Amer) Est GFR (Non-Af Amer) BUN/Creatinine Ratio Glucose POC Glucose 162 H Calcium Total Bilirubin AST ALT Alkaline Phosphatase Total Protein Albumin Globulin Albumin/Globulin Ratio Lipase Diagnostic Findings Chest/Abdomen X-ray 06/03/21 08:42 PA CHEST WITH ABDOMINAL SERIES CLINICAL HISTORY: Abdominal bloating. Constipation. FINDINGS: A PA chest radiograph is compared to study dated 06/28/2017. The patient is status post midline sternotomy and cardiac valve surgery. A 2-lead cardiac pacemaker is unchanged in position and partially obscures the left upper chest. The heart is enlarged noting atherosclerotic calcification of the thoracic aorta. The pulmonary vasculature is noncongested. Atelectasis is noted the lung bases and there is chronic elevation of the right hemidiaphragm. The lungs and pleural spaces are otherwise clear. No pneumothorax is seen. The skeletal structures are osteopenic. The bony thorax is grossly intact. Supine and erect abdominal radiographs are correlated with abdominal CT dated 05/31/2021. Biliary stents are in place. There is a nonobstructed abdominal bowel gas pattern. Moderate fecal retention is seen throughout the colon. No evidence of intraperitoneal free air is identified. There are no abnormal abdominal calcifications. Numerous phleboliths are seen in the pelvis. The lumbosacral spine and bony pelvis appear intact. IMPRESSION: 1. Cardiomegaly and cardiac pacemaker. There is no radiographic evidence of congestive failure. 2. There is no airspace consolidation typical for pneumonia or pleural effusion. 3. Nonobstructed abdominal bowel gas pattern. 4. Biliary stents are in place. ACT 112: Negative or not required by law. Electronically signed by: Todd Guerrero M.D. 06/03/2021 11:51 AM PG Care Time/CCT Total # of Minutes Spent Total Time Spent with Patient: Total time spent is greater than 50% in coordination of care (as documented) at patient's floor/unit and/or counseling patient: Coding Level of Care Code 46463 Subseq Hosp Care Lvl 2 Diagnoses Choledocholithiasis K80.50 Gallstones K80.20 Acute cholangitis K83.09 Acute gallstone pancreatitis K85.10 Common bile duct obstruction K83.1 Elevated troponin R77.8 Supratherapeutic INR R79.1 Diabetes mellitus E11.42; Z79.4 Diabetes mellitus complication detail: with polyneuropathy Diabetes mellitus complication status: with neurologic complications Diabetes mellitus rodent exterminator insulin use: with nursing home use Diabetes mellitus type: type 2 Anticoagulant long-term use Z79.01 Hypertension I10 Paroxysmal atrial fibrillation I48.0 CAD (coronary artery disease) I25.10 Positive cardiac stress test R94.39 Mechanical heart valve present Z95.2 Acute kidney injury N17.9 NSVT (nonsustained ventricular tachycardia) I47.2 Constipation K59.00 (1) Diabetes mellitus Diabetes mellitus complication detail: with polyneuropathy Diabetes mellitus complication status: with neurologic complications Diabetes mellitus nursing home insulin use: with rodent exterminator use Diabetes mellitus type: type 2 Qualified Code(s): E11.42 - Type 2 diabetes mellitus with diabetic polyneuropathy; 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
[2021-06-03] MEDS: ADVANCED PROBIOTIC 1250 MG CAPSULE PO SCH (15:57)
[2021-06-03] MEDS ORDERED: bisacodyL 10 MG SUPP PR ONE (17:35)
--- NOTE | 2021-06-03 19:19 | Electrocardiogram Report ---
Test Reason : Blood Pressure : / mmHG Vent. Rate : 077 BPM Atrial Rate : 308 BPM P-R Int : 000 ms QRS Dur : 198 ms QT Int : 470 ms P-R-T Axes : 000 -86 082 degrees QTc Int : 531 ms Ventricular-paced rhythm Underlying atrial fibrillation Abnormal ECG When compared with ECG of 04-SEP-1995 16:25, Electronic ventricular pacemaker has replaced Sinus rhythm Atrial fibrillation is now Present Confirmed by Donovan Cade ([id number]) on 06/03/2021 7:18:30 PM Referred By: Efrain Arroyo Confirmed By:Donovan Cade
--- NOTE | 2021-06-03 19:27 | Electrocardiogram Report ---
Test Reason : Blood Pressure : / mmHG Vent. Rate : 069 BPM Atrial Rate : 072 BPM P-R Int : 000 ms QRS Dur : 208 ms QT Int : 494 ms P-R-T Axes : 000 -89 083 degrees QTc Int : 529 ms Ventricular-paced rhythm Abnormal ECG When compared with ECG of 31-MAY-2021 16:49, (unconfirmed) Vent. rate has decreased BY 8 BPM Confirmed by Donovan Cade ([id number]) on 06/03/2021 7:27:43 PM Referred By: Efrain Arroyo Confirmed By:Donovan Cade
[2021-06-03] MEDS: ROSUVASTATIN CALCIUM 10 MG TAB PO SCH (20:53)
[2021-06-04] MEDS: PIPERACILLIN/TAZOBACTAM 3.375 GM in DEXTROSE 5% 100 ML IV SCH ×3 (05:16→21:19)
[2021-06-04 07:56] LABS: INR 2.8 (0.9-1.1); Prothrombin Time 26.2 Seconds (9.0-12.0)
[2021-06-04] MEDS: PANTOprazole 40 MG TAB PO SCH (08:19)
[2021-06-04] MEDS: FERROUS SULFATE 325 MG TAB PO SCH ×2 (08:19→16:40)
[2021-06-04] MEDS: ADVANCED PROBIOTIC 1250 MG CAPSULE PO SCH (08:19)
[2021-06-04] MEDS: METOPROLOL TARTRATE 25 MG TAB PO SCH ×2 (08:19→21:20)
[2021-06-04] MEDS: ASPIRIN 81 MG ECTAB PO SCH (08:19)
[2021-06-04] MEDS: INSULIN GLARGINE SOLOSTAR 100 UNITS/ML 3 ML PEN SC SCH ×2 (08:20→21:19)
[2021-06-04] MEDS: ISOSORBIDE MONO EXTENDED REL 30 MG TABCR PO SCH (08:20)
[2021-06-04] MEDS: INSULIN ASPART PER UNIT SC SCH ×4 (08:30→21:20)
[2021-06-04 08:36] LABS: Albumin Globulin Ratio 0.7 (0.9-2); Albumin Level 2.6 gm/dl (3.4-5.0); BUN Creatinine Ratio 15.6 (10-20); Bilirubin,Total 2.5 mg/dl (0.2-1); Calcium 9.2 mg/dl (8.5-10.1); Creatinine Clr Calc Pharmacy 74.6 ml/min; Est GFR (African American) 84.5 ml/min; Est GFR (Non-African American) 72.9 ml/min; Globulin 3.6 gm/dl (2.5-4.0); Magnesium 1.8 mg/dl (1.8-2.4); Potassium 3.6 mmol/L (3.5-5.1); Total Protein 6.2 gm/dl (6.4-8.2)
[2021-06-04] MEDS: POLYETHYLENE (MIRALAX) 17 GM PACK PO SCH (08:38)
--- NOTE | 2021-06-04 16:10 | Hospitalist Progress Note ---
Date of Service June 04, 2021 Assessment & Plan (1) Choledocholithiasis: Plan: POD #3 - s/p [facility]. CBD stones/sludge along with purulent bile seen. s/p stone extraction and stent placement x 2. Purulence c/w cholangitis. Cont IV zosyn. LFTs again improved today. Cont IVF but likely d/c them later tonight. 14-day course of IV/PO antibiotics advised. Day #4 of such today. (2) Gallstones: Plan: patient has gallstones in the gall bladder. in light of this and gallstone pancreatitis/choledocholithiasis ideally he should have lap joanie. However, he is high risk for surgery due to known CAD and chest pains along with + stress test in 04/2021. No lap joanie at this time until cardiac status is optimized. Appreciate Dr Shell consultation and assistance. (3) Acute cholangitis: Plan: ERCP c/w such. IV zosyn, then PO abx at discharge. Total course x 2 weeks. Did not have blood cultures drawn at time of ER presentation. (4) Acute gallstone pancreatitis: Plan: Improving, lipase now <500. Pain resolved. Repeat lipase in am. Cont IVF this am/afternoon then d/c them later tonight. x-rays of abdomen today w/o ileus - constipation seen. bowel regimen helping Cont low fat diet. (5) Common bile duct obstruction: Plan: See above (6) Elevated troponin: Plan: 2nd to myocardial demand ischemia in setting of #1,#2. He has known CAD, but did not have ischemic symptoms just prior to admission for [facility] sunday - although since knowing he will need choley in near future that may effect choice to stent vs observe, and choice of stent if one needed (7) Supratherapeutic INR: Plan: now therapeutic (8) Diabetes mellitus: Plan: uncontrolled adjust novolog once again increase his lantus to 25 units BID (9) Anticoagulant long-term use: Plan: 2nd to PAF + [facility] Bala mech valves INR goal 2.5 to 3.5 see above (10) Hypertension: Plan: Cont BB Hold FUNMILAYO due to KIRSTEN Cont imdur 30mg daily due to recent chest pains (11) Paroxysmal atrial fibrillation: Plan: rate controlled, anticoagulated (12) CAD (coronary artery disease): Plan: Cont BB Remains on statin agent -- can continue since LFTs trending down Cont imdur Holding FUNMILAYO Resumed aspirin patient with known CAD - had heart cath in 2013 for [facility] sunday (13) Positive cardiac stress test: Plan: 04/2021 + stress test; LAD territory ischemia vs infarct s/p heart cath pre-op 2013 with moderate LAD lesion and OM disease if patient were to have lap joanie he would be high risk for perioperative acute [place], PAF, etc. Dr Shell aware of positive stress test recently and need for heart cath Lap joanie to be delayed for now heart cath on Sunday by Dr Marie resumed asa resumed statin as LFTs are stable and trending down (14) Mechanical heart valve present: Plan: MV, AV surgery performed at [facility] (15) Acute kidney injury: Plan: improving likely ATN in setting of his cholangitis (16) NSVT (nonsustained ventricular tachycardia): Plan: most recent echo with preserved EF cont metoprolol BID (17) Constipation: Plan: miralax - improved Plan: remain inpt - cath sunday Admission and Anticipated Discharge Date Admission Date: May 31, 2021 Subjective feeling good overall waiting on [facility]. notes that he slept the best that he had since admission. walking halls w . slight feet swelling. no sob Review of Systems Review of Systems: All systems reviewed & are unremarkable except as noted in HPI & below Physical Exam Physical Exam: vitals noted nad heent nc at mmm breathing unlabored no accessory muscles good effort skin no rashes no pallor or icterus no focal neuro deficits Results & Data Results & Data ([facility]) Vital Signs (Past 12 Hours) Vital Signs Temp Pulse Pulse Resp BP BP Pulse Ox 06/04/21 14:20 64 06/04/21 11:50 99.1 F 61 20 118/68 96 06/04/21 07:15 60 06/04/21 07:03 98.2 F 65 20 138/70 97 06/04/21 04:10 98.4 F 64 20 110/66 93 PG Care Time/CCT Total # of Minutes Spent Total Time Spent with Patient: Total time spent is greater than 50% in coordination of care (as documented) at patient's floor/unit and/or counseling patient: Coding Level of Care Code 69415 Subseq Hosp Care Lvl 3 Diagnoses Choledocholithiasis K80.50 Gallstones K80.20 Acute cholangitis K83.09 Acute gallstone pancreatitis K85.10 Common bile duct obstruction K83.1 Elevated troponin R77.8 Supratherapeutic INR R79.1 Diabetes mellitus E11.42; Z79.4 Diabetes mellitus type: type 2 Diabetes mellitus terminologist insulin use: with terminologist use Diabetes mellitus complication status: with neurologic complications Diabetes mellitus complication detail: with polyneuropathy Anticoagulant long-term use Z79.01 Hypertension I10 Paroxysmal atrial fibrillation I48.0 CAD (coronary artery disease) I25.10 Positive cardiac stress test R94.39 Mechanical heart valve present Z95.2 Acute kidney injury N17.9 NSVT (nonsustained ventricular tachycardia) I47.2 Constipation K59.00 (1) Diabetes mellitus Diabetes mellitus type: type 2 Diabetes mellitus jail insulin use: with terminologist use Diabetes mellitus complication status: with neurologic complications Diabetes mellitus complication detail: with polyneuropathy Qualified Code(s): E11.42 - Type 2 diabetes mellitus with diabetic polyneuropathy; Z79.4 - [facility] (current) use of insulin
[2021-06-04] MEDS: ROSUVASTATIN CALCIUM 10 MG TAB PO SCH (21:19)
[2021-06-05 06:08] LABS: INR 1.9 (0.9-1.1); Prothrombin Time 18.5 Seconds (9.0-12.0)
[2021-06-05] MEDS: PIPERACILLIN/TAZOBACTAM 3.375 GM in DEXTROSE 5% 100 ML IV SCH ×3 (06:24→20:50)
[2021-06-05] MEDS ORDERED: Heparin IV Adult Wt-Based Low-Dose *NO* Bolus Protocol IV SCH (08:25)
[2021-06-05] MEDS: ASPIRIN 81 MG ECTAB PO SCH (08:58)
[2021-06-05] MEDS: PANTOprazole 40 MG TAB PO SCH (08:59)
[2021-06-05] MEDS: INSULIN GLARGINE SOLOSTAR 100 UNITS/ML 3 ML PEN SC SCH ×2 (09:00→20:48)
[2021-06-05] MEDS: FERROUS SULFATE 325 MG TAB PO SCH ×2 (09:00→17:05)
[2021-06-05] MEDS: ADVANCED PROBIOTIC 1250 MG CAPSULE PO SCH (09:00)
[2021-06-05] MEDS: METOPROLOL TARTRATE 25 MG TAB PO SCH ×2 (09:02→20:48)
[2021-06-05] MEDS: ISOSORBIDE MONO EXTENDED REL 30 MG TABCR PO SCH (09:02)
[2021-06-05] MEDS: POLYETHYLENE (MIRALAX) 17 GM PACK PO SCH (09:03)
[2021-06-05] MEDS: INSULIN ASPART PER UNIT SC SCH ×4 (09:03→20:48)
[2021-06-05] MEDS: HEPARIN SODIUM/DEXTROSE 25,000 UNITS/500 ML BAG IV SCH (09:15)
--- NOTE | 2021-06-05 15:06 | Hospitalist Progress Note ---
Date of Service June 05, 2021 Assessment & Plan (1) Choledocholithiasis: Plan: POD #3 - [facility] CBD stones/sludge along with purulent bile seen. s/p stone extraction and stent placement x 2. Purulence c/w cholangitis. Cont IV zosyn. trend periodic LFTs 14-day course of IV/PO antibiotics advised. Day #5 of such today. (2) Gallstones: Plan: patient has gallstones in the gall bladder. in light of this and gallstone pancreatitis/choledocholithiasis ideally he should have lap joanie. However, he is high risk for surgery due to known CAD and chest pains along with + stress test in 04/2021. No lap joanie at this time until cardiac status is optimized. low fat diet until choley can eventually be done Appreciate Dr Shell consultation and assistance. (3) Acute cholangitis: Plan: ERCP c/w such. IV zosyn, then PO abx at discharge. Total course x 2 weeks. (4) Acute gallstone pancreatitis: Plan: essentially resolved. Cont low fat diet. (5) Common bile duct obstruction: Plan: See above (6) Elevated troponin: Plan: 2nd to myocardial demand ischemia in setting of #1,#2. He has known CAD, but did not have ischemic symptoms just prior to admission for [facility] tomorrow - although since knowing he will need choley in near future that may effect choice to stent vs observe, and choice of stent if one needed (7) Supratherapeutic INR: Plan: trending down - given mechanical valve and need for [facility] tomorrow - for now will cautiously utilize heparin low dose no bolus (8) Diabetes mellitus: Plan: sugars overall reasonable last 24hrs (9) Anticoagulant long-term use: Plan: 2nd to PAF + St Bala mech valves INR goal 2.5 to 3.5 see above - for now low dose no bolus heparin (10) Hypertension: Plan: Cont BB can probably resume ACEi at dc Cont imdur 30mg daily due to recent chest pains (11) Paroxysmal atrial fibrillation: Plan: rate controlled, anticoagulated (12) CAD (coronary artery disease): Plan: Cont BB Remains on statin agent -- can continue since LFTs trending down Cont imdur Holding FUNMILAYO Resumed aspirin patient with known CAD - had heart cath in 2013 for [facility] tomorrow (13) Positive cardiac stress test: Plan: 04/2021 + stress test; LAD territory ischemia vs infarct s/p heart cath pre-op 2013 with moderate LAD lesion and OM disease if patient were to have lap joanie he would be high risk for perioperative acute [place], PAF, etc. Dr Shell aware of positive stress test recently and need for heart cath Lap joanie to be delayed for now heart cath on Sunday by Dr Marie resumed asa resumed statin as LFTs are stable and trending down (14) Mechanical heart valve present: Plan: MV, AV surgery performed at [facility] (15) Acute kidney injury: Plan: improving likely ATN in setting of his cholangitis (16) NSVT (nonsustained ventricular tachycardia): Plan: most recent echo with preserved EF cont metoprolol BID (17) Constipation: Plan: miralax - improved Plan: remain inpt - cath tomorrow; further planning thereafter Admission and Anticipated Discharge Date Admission Date: May 31, 2021 Subjective a little more fatigued today maybe a little MEYER nothing that he is equating to angina and gets better with rest. wonders if it's just fatigue, if it's anxiety about [facility] tomorrow. no other new problems. Review of Systems Review of Systems: All systems reviewed & are unremarkable except as noted in HPI & below Physical Exam Physical Exam: gen aao pleasant nad heent nc at mmm lungs cta b/l no rr//w good effort (maybe a faint rale base R but not even truly clear it was that even w amplified stethoscope) no accessory muscles good effort skin no rashes no pallor or icterus neuro no focal deficits. Results & Data Results & Data ([facility]) Vital Signs (Past 12 Hours) Vital Signs Temp Pulse Pulse Resp BP BP Pulse Ox 06/05/21 11:33 98.6 F 62 18 109/60 94 06/05/21 08:02 98.1 F 82 18 124/77 97 06/05/21 07:00 68 06/05/21 04:25 98.6 F 63 18 129/64 95 PG Care Time/CCT Total # of Minutes Spent Total Time Spent with Patient: Total time spent is greater than 50% in coordination of care (as documented) at patient's floor/unit and/or counseling patient: Coding Level of Care Code 89[address] [facility] 3 Diagnoses Choledocholithiasis K80.50 Gallstones K80.20 Acute cholangitis K83.09 Acute gallstone pancreatitis K85.10 Common bile duct obstruction K83.1 Elevated troponin R77.8 Supratherapeutic INR R79.1 Diabetes mellitus E11.42; Z79.4 Diabetes mellitus type: type 2 Diabetes mellitus roasterman insulin use: with roasterman use Diabetes mellitus complication status: with neurologic complications Diabetes mellitus complication detail: with polyneuropathy Anticoagulant long-term use Z79.01 Hypertension I10 Paroxysmal atrial fibrillation I48.0 CAD (coronary artery disease) I25.10 Positive cardiac stress test R94.39 Mechanical heart valve present Z95.2 Acute kidney injury N17.9 NSVT (nonsustained ventricular tachycardia) I47.2 Constipation K59.00 (1) Diabetes mellitus Diabetes mellitus type: type 2 Diabetes mellitus shelter insulin use: with shelter use Diabetes mellitus complication status: with neurologic complications Diabetes mellitus complication detail: with polyneuropathy Qualified Code(s): E11.42 - Type 2 diabetes mellitus with diabetic polyneuropathy; Z79.4 - terminal operator (current) use of insulin
[2021-06-05 15:49] LABS: Partial Thromboplastin Ratio 1.4; Partial Thromboplastin Time 37.1 Seconds (21.0-31.0)
[2021-06-05] MEDS ORDERED: HEPARIN SOD (PORCINE) 1000 UNIT/ML IV ONE (16:00)
[2021-06-05] MEDS: ROSUVASTATIN CALCIUM 10 MG TAB PO SCH (20:48)
[2021-06-05 23:44] LABS: Partial Thromboplastin Ratio 1.6; Partial Thromboplastin Time 41.1 Seconds (21.0-31.0)
[2021-06-06] MEDS: PIPERACILLIN/TAZOBACTAM 3.375 GM in DEXTROSE 5% 100 ML IV SCH (04:36)
[2021-06-06] MEDS ORDERED: NITROGLYCERIN SL 0.4 MG/TAB TAB SL STA (05:03)
--- NOTE | 2021-06-06 05:11 | Communication Note ---
Date of Service: June 06, 2021 Contacted by nursing for patient with complaint of left upper chest pain without radiation to left arm or left jaw. He notes that the pain started after having to strain for a bowel movement as he has been constipated. The pain subsided and he was able to fall asleep, then had to use the bathroom again and the pain worsened. He endorses some sense of anxiety over his procedure at 130pm today for catheterization, as well as general nervousness about surgery. He felt a little dyspneic and 2L O2 was placed for comfort (was 98% on room air). On my ex am patient's heart is regular rate and rhythm, no murmurs, lungs CTA bilaterally. Some tenderness to palpation over left anterior chest wall. On palpation I asked the patient if he had been coughing at all to which he admitted "a little". Troponin, BMP, Mg. Phos ordered stat. EKG without ST segment elevations, no significant changes from previous EKG 05/31. Did order nitro SL x1 to see if improves pain. Also provided a lidocaine patch for possible MSK component. Patient declined morphine given constipation. Resident Activity Tracking Resident Involvement: Resident Care Provided Care Provided: Adult [facility] Medicine
[2021-06-06] MEDS ORDERED: LIDOCAINE 5% 1 PATCH TD SCH (05:45)
[2021-06-06 06:01] LABS: Basophils # (auto) 0.01 K/uL (0-0.2); Basophils % (auto) 0.1 %; Eosinophils # (auto) 0.01 K/uL (0-0.5); Eosinophils % (auto) 0.1 %; Hematocrit (blood only) 26.9 % (42-52); Hemoglobin 8.7 g/dL (14.0-18.0); Immature Granulocytes # (auto) 0.05 K/uL (0.00-0.02); Immature Granulocytes % (auto) 0.7 %; Lymphocytes # (auto) 0.96 K/uL (1.2-3.4); Lymphocytes % (auto) 12.8 %; Mean Corpuscular Hemoglobin 29.9 pg (25-34); Mean Corpuscular Hgb Conc 32.3 g/dL (32-36); Mean Corpuscular Volume 92.4 fL (80-100); Mean Platelet Volume 9.6 fL (7.4-10.4); Monocytes # (auto) 0.43 K/uL (0.11-0.59); Monocytes % (auto) 5.7 %; Neutrophils # (auto) 6.05 K/uL (1.4-6.5); Neutrophils % (auto) 80.6 %; Platelet Count 307 K/uL (130-400); RDW Coefficient of Variation 14.1 % (11.5-14.5); RDW Standard Deviation 48.1 fL (36.4-46.3); Red Blood Count 2.91 M/uL (4.7-6.1); White Blood Count 7.51 K/uL (4.8-10.8)
[2021-06-06 06:22] LABS: Partial Thromboplastin Ratio 1.8
[2021-06-06 06:29] LABS: BUN Creatinine Ratio 33.8 (10-20); Calcium 8.8 mg/dl (8.5-10.1); Creatinine Clr Calc Pharmacy 71.5 ml/min; Est GFR (African American) 80.7 ml/min; Est GFR (Non-African American) 69.7 ml/min; Magnesium 1.4 mg/dl (1.8-2.4); Potassium 3.5 mmol/L (3.5-5.1)
[2021-06-06 06:44] LABS: Partial Thromboplastin Time 48.4 Seconds (21.0-31.0)
[2021-06-06 06:45] LABS: Phosphorus 3.6 mg/dl (2.5-4.9); Troponin I 1.54 ng/ml (0-0.045)
[2021-06-06] MEDS: HEPARIN SODIUM/DEXTROSE 25,000 UNITS/500 ML BAG IV SCH (07:44)
[2021-06-06] MEDS: INSULIN ASPART PER UNIT SC SCH (08:05)
[2021-06-06] MEDS: FERROUS SULFATE 325 MG TAB PO SCH (08:07)
[2021-06-06] MEDS: INSULIN GLARGINE SOLOSTAR 100 UNITS/ML 3 ML PEN SC SCH (08:07)
[2021-06-06] MEDS: PANTOprazole 40 MG TAB PO SCH (08:12)
[2021-06-06] MEDS: METOPROLOL TARTRATE 25 MG TAB PO SCH (08:12)
[2021-06-06] MEDS: POLYETHYLENE (MIRALAX) 17 GM PACK PO SCH (08:12)
[2021-06-06] MEDS: ADVANCED PROBIOTIC 1250 MG CAPSULE PO SCH (08:12)
[2021-06-06] MEDS: ISOSORBIDE MONO EXTENDED REL 30 MG TABCR PO SCH (08:12)
[2021-06-06] MEDS ORDERED: METOPROLOL TARTRATE 1 MG/ML VIAL IV STA (08:27)
[2021-06-06] MEDS ORDERED: NITROGLYCERIN/D5W 100MCG/ML 20ML SYR ONE (08:55)
[2021-06-06] MEDS ORDERED: MAGNESIUM SULFATE / D5W 1 GM/100 ML BAG IV SCH (09:00)
[2021-06-06] MEDS: ASPIRIN 81 MG ECTAB PO SCH (10:01)
--- NOTE | 2021-06-06 10:16 | Emergency Department Note ---
ED Visit Note Assistance was requested for intubation for airway protection by Dr. Marie, interventional cardiology. The patient was undergoing cardiac catheterization found to have severe left main disease. Plan to place balloon pump. Patient was having increased shortness of breath and some confusion and so decision was made for intubation. Endotracheal Intubation Indication: Airway protection. Verbal consent obtained. Suction, airway equipment, RSI drugs, respiratory equipment, and appropriate personnel were prepared prior to the initiation of the procedure. Induction was performed with Etomidate and paralysis with Succinylcholine. After observing the clinical benefit of the medications, the airway was easily visualized utilizing a MAC 4 with Glidescope. A 7.5 size ETT tube was placed atraumatically to 23 cm using standard technique. The cuff inflated without signs of malfunction. There were bilateral breath sounds, positive colormetric change, no gastric sounds, a good capnography waveform, and post procedure pulse oximetry was 98%. Post intubation sedation per interventional cardiology team. There were no complications. .
--- NOTE | 2021-06-06 10:35 | Pre Anesthesia Assessment ---
Date of Service June 06, 2021 Pre Sedation Assessment Vital Signs Temp Pulse Pulse Resp BP BP BP 06/06/21 08:55 89 109/70 06/06/21 08:00 98.1 F 92 H 24 110/70 06/06/21 07:00 84 06/06/21 04:00 64 06/06/21 03:52 98.6 F 74 18 119/71 06/06/21 00:10 99.1 F 61 18 117/69 06/05/21 19:39 99.0 F 71 20 133/76 06/05/21 16:11 99.7 F H 66 18 144/75 H 06/05/21 14:20 64 06/05/21 11:33 98.6 F 62 18 109/60 Pulse Ox 06/06/21 08:55 06/06/21 08:00 92 06/06/21 07:00 06/06/21 04:00 06/06/21 03:52 98 06/06/21 00:10 97 06/05/21 19:39 95 06/05/21 16:11 96 06/05/21 14:20 06/05/21 11:33 94 Cardiovascular RRR, no murmur, no edema Respiratory normal respiratory effort, lungs clear to auscultation Pre-Sedation Airway Assessment Smoking Status: Never smoker Hx Sleep Apnea: No Hx Difficult Intubation: No Short, Thick Neck: No Thyromental Distance: > or= 3.5 Finger Breadths Oral Cavity: + WNL Mallampati Class: III ASA: ASA4 NPO Status Date of Last Intake of Fluids: 06/06/21 Date of Last Intake of Solid Food: 06/05/21 Procedure Planning Contraindications for Sedation: none Current Medications Reviewed: Yes Notes The planned sedation has been discussed with the patient. Informed Consent was obtained. I have identified the patient, determined the appropriateness of sedation and have assessed the patient immediately prior to the procedure. All medicine(s) and interventions are by my order.
--- NOTE | 2021-06-06 10:36 | Post Anesthesia Assessment ---
Date of Service June 06, 2021 Post Sedation Assessment Vital Signs Temp Pulse Pulse Resp BP BP BP 06/06/21 10:23 65 18 06/06/21 08:55 89 109/70 06/06/21 08:00 98.1 F 92 H 24 110/70 06/06/21 07:00 84 06/06/21 04:00 64 06/06/21 03:52 98.6 F 74 18 119/71 06/06/21 00:10 99.1 F 61 18 117/69 06/05/21 19:39 99.0 F 71 20 133/76 06/05/21 16:11 99.7 F H 66 18 144/75 H 06/05/21 14:20 64 06/05/21 11:33 98.6 F 62 18 109/60 Pulse Ox 06/06/21 10:23 98 06/06/21 08:55 06/06/21 08:00 92 06/06/21 07:00 06/06/21 04:00 06/06/21 03:52 98 06/06/21 00:10 97 06/05/21 19:39 95 06/05/21 16:11 96 06/05/21 14:20 06/05/21 11:33 94 Recovery Score Activity: Moves 4 extremities Respiration: Deep Breath/Cough Circulation: +/-20% PreAnes Value Consciousness: Fully Awake Oxygen Saturation: O2 needed for >90% Post Anesthesia Score: 10 Discharge Sedation Level of Care: Fast Track Phase II Post Sedation Plan On clinical assessment, the patient appears to have tolerated the sedation without complications. Patient is recovering as anticipated. Patient will continue to be monitored by nursing and may be discharged when sedation discharge criteria are met per below protocol. Upon Completions of procedure up to 15 minutes continue every 5 minute vital signs and the P.A.R. score; then discharge to a Phase I or Fast Track to Phase II per the following guidelines: * Discharge Patient to appropriate Phase II area if PAR is 8 or greater or retu rn to pre- procedure baseline. The post - procedure orders will be as directed. * If PAR score is less than 8 or not return to pre-procedure baseline then patient will follow Phase I monitoring till PAR is reached for Phase II. The Phase I may be done in procedure room or may call to secure a Phase I area. * If naloxone or flumazenil are used for reversal, hold in Phase I for continued monitoring from when last reversal dose was given for a minimum of 60 minutes or longer pending the nurse and/or physician discretion of patient condition before discharge to Phase II. Please call the Sedation Physician to re-evaluate and complete post-note for discharge to Phase II area. Do NOT discharge from procedure sedation or Phase 1 until post- sedation evaluation note is complete by procedure /sedation MD Sedation Discharge Instructions to be given to the patient at discharge to home.
[2021-06-06 10:37] LABS: iSTAT Hemoglobin 9.2 g/dl (14.0-18.0); iSTAT Ionized Calcium 1.2 mmol/l (1.12-1.32); iSTAT Potassium 3.9 mmol/L (3.3-5.0)
[2021-06-06 10:37] LABS: iSTAT Arterial Blood Gas HCO3 23 meg/L (19-24); iSTAT Arterial Blood Gas pCO2 42 mmHg (35-46); iSTAT Arterial Blood Gas pH 7.35 (7.35-7.45); iSTAT Arterial Blood Gas pO2 89 mmHg (80-95); iSTAT Carbon Dioxide 24 mmol/L (24-31)
[2021-06-06 10:42] LABS: iSTAT Arterial Blood Gas HCO3 24 meg/L (19-24); iSTAT Arterial Blood Gas pCO2 46 mmHg (35-46); iSTAT Arterial Blood Gas pH 7.33 (7.35-7.45); iSTAT Arterial Blood Gas pO2 < 32 mmHg (80-95); iSTAT Carbon Dioxide 26 mmol/L (24-31)
--- NOTE | 2021-06-06 10:43 | Cardiac Catheterization ---
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[employer] Cardiac Status Clinical evaluation leading to the procedure CAD Presenation: Non STEMI Anginal Classification: CCS IV Heart Failure: No Cardiogenic Shock within 24 Hours: No Cardiac Arrest within 24 Hours: No Imaging Studies Past 6 Months: Yes Stress Studies Past 6 Months: Yes Stress Testing w/SPECT MPI: Yes - Positive and Risk/Extent of Ischemia (Intermediate) Diagnostic Physicians Name: Russ Marie MD Closure Device Recommendations: CABG Intraprocedure Events Significant Disection: No Perforation: No Cardiac Cath Procedure Full Procedure Date June 06, 2021 Pre-Procedure Diagnosis Pre-Procedure Diagnosis: Non STEMI AUC Score AUC Score: 8 Post-Procedure Diagnosis Post-Procedure Diagnosis: Severe CAD and Elevated Intracardiac Pressures Procedure(s) Performed Procedure(s) Performed: Coronary Angiography, Right Heart Cath, IABP and Ultrasound Guided Vascular Access Billing And Insurance Coordinator Russ Marie MD Estimated Blood Loss Estimated Blood Loss: 20 Medication(s) Medication(s): Heparin, Lidocaine 1%, Nicardipine, Nitroglycerin and Versed Medication(s): Dobutamine Summary of Findings Indication: Mr. Patton is a 70-year-old man with a history of rheumatic heart disease post mechanical aortic, mitral valve disease, stable mild paravalvular mitral regurgitation, history of complete heart block post chamber pacemaker, type 2 diabetes and prior nonobstructive moderate coronary artery disease on catheterization prior to valve replacement. Active at baseline with mild new exertional dyspnea walking up hills. Nuclear stress 1 month ago showed a significant amount of LAD distribution infarct but primarily ischemia. Patient opted for trial of medical management. Was admitted last week with acute cholangitis now post ERCP and biliary stent placement x2. During hospital course endorsed intermittent chest pain with minimal exertion and had a minimally elevated troponin. This morning developed acute onset, persistent chest pain with now rising troponin. Access: 6 Fr right radial artery. 8 Fr sheath the right HAND DEICER ELEMENT WINDER under ultrasound guidance. 7 Fr sheath to right CFV Catheters: owen Wilson JR4 Findings: LM -acute appearing 90-95% ostial to mid stenosis sparing bifurcation LAD -medium caliber vessel, subtotal latemid occlusion, diffuse severe distal disease with HARJIT I flow. 50% ostial D1 stenosis Circumflex -70 to 80% ostial stenosis, remainder of vessel without significant disease RCA -dominant, medium caliber, 30% ostial, remainder of vessel without significant disease. Patient with active chest pain, increased work of breathing and lethargy. In the setting of critical left main disease patient electively intubated. IABP placed to right common femoral artery. Right heart cath performed via right common femoral vein. RA 14 RV 58/14 PA 63/30 (43) PAWP 22 PaSat 43% AoSat 96% [place]/CI 3.8/1.8. Lactate 2.4. Started on dobutamine 5 mcg Arterial Closure: TR band. IABP, [place] secured into place. Summary: 1. Severe multivessel coronary artery disease -Acute 95% ostial to mid left main 70 to 80% ostial circumflex Subtotal mid LAD occlusion with severe diffuse apical disease and HARJIT I flow 2. Elevated left and right-sided filling pressures 3. Reduced cardiac output 4. Pulmonary Hypertension 5. Successful IABP placement to right common femoral artery Recommendations: Transfer to tertiary center for consideration of CABG versus high risk PCI Hemodynamics Rest Ao:: 109/63/80 Final Ao: 173/65/86 LV: -- Recommendations Recommendations: CABG Specimens Specimens: None Radiation Exposure (mGy) 388 Contrast (mls) 50 Drains Drains: none Anesthesia moderate 4913-9123 Procedural Complication(s) None Disposition [facility] I attest to the content of the Intraoperative Record and any orders documented therein. Any exceptions are noted below. [facility] Card Cath Procedure Codes Cardiac Catheterization Procedure 1: Cardiovascular Cath Procedures: 56859 Coronaries and RHC Therapeutic Services & Ancillary Proc Procedure 1: Cardiovascular Tx and Anc Procedures: 68779 IABP Insertion Procedure 2: Cardiovascular Tx and Anc Procedures: 20139 Ultrasonic Guidance Vascular Access Moderate Sedation Procedure 1: Sedation/Anesthesia: 88968 Mod Sedation by the same physician;Init15 Min Child Age 5 & Up Procedure 2: Sedation/Anesthesia: 88172 Mod Sedation by the same physician; Ea [id number] Minutes PG Care Time/CCT Total # of Minutes Spent Total Time Spent with Patient: Total time spent is greater than 50% in coordination of care (as documented) at patient's floor/unit and/or counseling patient:
[2021-06-06] MEDS ORDERED: ETOMIDATE 2 MG/ML 20 ML VIAL IV ONE (12:25)
[2021-06-06] MEDS ORDERED: SUCCINYLCHOLINE CHLORIDE 20 MG/ML 10 ML VIAL IV ONE (12:25)
--- NOTE | 2021-06-06 18:27 | Discharge Summary ---
Date of Service June 06, 2021 Admission HPI Per Admitting Provider Patient is a 70-year-old male with a past medical history of mechanical aortic and mitral heart valves, chronic anticoagulation on Coumadin, paroxysmal atrial fibrillation, AICD placed, DM 2, hypertension, and hyperlipidemia presenting to the hospital for the chief complaint of abdominal pain. Patient reports that for the past 1 to 2 weeks he has been having ongoing nausea, abdominal discomfort, fevers, chills, and acid reflux. Patient has gotten to the point that he was wrapping himself in a coat, under a blanket, and wear a scarf as his intermittent chills could not be relieved. He does report that he did have one episode 3 days ago of a fever of 103, however, this is the only time that he did have a fever. Patient has been taking upwards the 5 or 6 Tums to relieve acid reflux that he has been having. Patient thought that his symptoms were due to starting a long-acting nitro for angina a couple of weeks ago. For this reason patient had set up an appointment via telehealth with his primary care provider and had lab work ordered yesterday Lab work returned this morning and his primary care provider instructed him to go to the ED for abnormal labs. When the patient arrived he ultimately had an abdominal CT performed which revealed a stone blocking the common bile duct as well as pericholecystic inflammation suggestive of cholecystitis. Patient was placed on pain medication which has ma de him feel much better. Patient has no other complaints at this time. Principal Diagnosis Choledocholithiasis, cholangitis, acute gallstone pancreatitisall improved Unstable angina with severe coronary diseasetransferred to tertiary care Discharge Exam Patient seen prior to heart cath this morninglaying in bed appearing mildly anxious overall fatigued no distress. HEENT normocephalic atraumatic mucous membranes moist. Cardio is regular without rubs murmurs gallops. Lungs clear to auscultation bilaterally no rales rhonchi or wheeze with good effort. Skin shows no rashes no pallor or icterus. Discharge Data Allergies Allergy/AdvReac Type Severity Reaction Status Date / Time No Known Drug Allergies Allergy Verified 06/01/21 09:21 Consultations 05/31/21 18:33 ED Decision to Admit Stat 05/31/21 20:31 Consult Gastroenterology Routine Consult General Surgery Routine Procedures Performed Operation Date: 06/01/21 12:00 Actual Procedures p Endoscopic Retrograde Cholangiopancreatography with Stent Placement, GallStone Retraction(Not Applicable) - Chantal Wheeler DO Operation Date: 06/06/21 13:30 Actual Procedures p Cineradiography w/Routine Exam - Ham Marie MD p Cath, Right Heart with Cors - Ham Marie MD s Intra-Aortic Balloon Insertion - Ham Marie MD s Ultrasound Vascular Access - Ham Marie MD Ordered Studies 05/31/21 16:01 CT abd pelvis IV con only Stat 06/01/21 08:00 FL ERCP biliary ductal Routine 06/06/21 06:57 CL Cath Imgs for PACS use only Routine Hospital Course (1) Elevated troponin: Known coronary disease, progressive unstable symptomsdiscussed with cardiology, cath that was supposed to be this afternoon was then moved up to essentially [facility] cath report, but patient transferred to tertiary care for further interventions. (2) Choledocholithiasis: POD #4 - s/p ERCP by Dr Wheeler, [facility]. CBD stones/sludge along with purulent bile seen. s/p stone extraction and stent placement x 2. Purulence c/w cholangitis. Cont IV zosyn. trend periodic LFTs 14-day course of IV/PO antibiotics advised. Day #6 of such today. (3) Gallstones: patient has gallstones in the gall bladder. in light of this and gallstone pancreatitis/choledocholithiasis ideally he should have lap joanie. However, he is high risk for surgery due to known CAD and chest pains along with + stress test in 04/2021. No lap joanie at this time until cardiac status is optimized. low fat diet until choley can eventually be done (4) Acute cholangitis: ERCP c/w such. IV zosyn, then PO abx at discharge. Total course x 2 weeks. (5) Acute gallstone pancreatitis: essentially resolved. Cont low fat diet. (6) Common bile duct obstruction: See above (7) Supratherapeutic INR: Trended downthen because of procedures, once his INR was lower, heparin drip was started to continue anticoagulation unbroken during procedures. Would resume Coumadin once able. (8) Diabetes mellitus: sugars overall reasonable (9) Anticoagulant long-term use: 2nd to PAF + [facility] mech valves INR goal 2.5 to 3.5 see above - for now low dose no bolus heparin (10) Hypertension: Cont BB FUNMILAYO inhibitor has been heldhopefully can resume depending on his clinical status after coronary interventions Cont imdur 30mg daily due to recent chest pains (11) Paroxysmal atrial fibrillation: rate controlled, anticoagulated (12) CAD (coronary artery disease): Unstable angina this morningcath with critical stenosistransfer to tertiary. (13) Mechanical heart valve present: MV, AV surgery performed at [facility] (14) Acute kidney injury: improving likely ATN in setting of his cholangitis (15) NSVT (nonsustained ventricular tachycardia): most recent echo with preserved EF cont metoprolol BID (16) Constipation: miralax - improved [facility] Total Time Total Time Spent Total Time Spent (In Minutes): Less than 30 Discharge Plan Discharge Items Patient Disposition: Transfer Acute Care Hospital Reason For Visit: ABDOMINAL PAIN Discharge Diagnosis: severe CAD Activity: Per Instructions section Activity Comment: per tertiary Non-emergency contact: Primary Care Provider and Dip Lube Operator Call non-emergency contact if: you have any medication questions and your symptoms worsen Follow-up/Referrals: Waldo Shell MD, FACS [Physician] - (Follow-up in 1 to 2 weeks for evaluation and for possible scheduling of surgery) Efrain Arroyo III, CRNP [Primary Care Provider] - Diet: Carb Consistent or DM2 and Heart Healthy Addtl Attending Provider Instructions: per tertiary med list on reconcilliation a reflection pre-admission home meds Pending Studies at Discharge: No Stand-Alone Forms: My [facility] Skilled Items Patient informed of condition?: Yes DNR: No Discharge Level of Care: Other Communicable Disease: No Discharge Prognosis: Other Lines: Peripheral IV Urinary Catheter: No Medications and DC Order Prescriptions: Continued metoprolol tartrate 25 mg tablet 25 mg PO BID Qty: 180 RF: 3 (DME) FreeStyle Ulises 14 Day [place] Misc See Rx Instructions .MEDSUPPLY Qty: 1 RF: 0 (DME) OneTouch Ultra Test Strip See Rx Instructions .Route Qty: 100 RF: 5 (DME) blood-glucose meter [OneTouch Ultra2 Meter] Misc See Rx Instructions .Route Qty: 1 RF: 0 (DME) lancets [OneTouch Delica Lancets] 30 gauge misc See Dose Instructions .ROUTE .MEDSUPPLY Qty: 100 RF: 5 (DME) pen needle, diabetic [UltiCare Pen Needle] 32 gauge x 1/4" needle See Dose Instructions .ROUTE .MEDSUPPLY Qty: 200 RF: 1 pantoprazole 20 mg tablet,delayed release (DR/EC) 20 mg PO QAM Qty: 90 RF: 1 Trulicity 0.75 mg/0.5 mL pen injector 0.75 mg SQ WK Qty: 6 RF: 1 magnesium oxide 400 mg (241.3 mg magnesium) tablet 400 mg PO BID Qty: 180 RF: 1 rosuvastatin 10 mg tablet 10 mg PO HS Qty: 90 RF: 1 (DME) FreeStyle Ulises 14 Day Sensor Kit See Rx Instructions .MEDSUPPLY Qty: 1 RF: 0 lisinopril 20 mg tablet 20 mg PO BID Qty: 180 RF: 1 cholecalciferol (vitamin D3) 50 mcg (2,000 unit) tablet 2,000 unit PO QAM Qty: 90 RF: 0 ketoconazole 2 % cream 1 applic TOP BID PRN (Reason: rash) Qty: 60 RF: 5 Lantus Solostar U-100 Insulin 100 unit/mL (3 mL) insulin pen 30 unit SQ DAILY Qty: 15 RF: 1 ascorbic acid (vitamin C) 500 mg tablet 500 mg PO BID Qty: 180 RF: 0 ferrous sulfate 325 mg (65 mg iron) tablet 325 mg PO BID RF: 0 acetaminophen 325 mg tablet 325 - 650 mg PO Q6H PRN (Reason: fever or pain) RF: 0 (DME) insulin syringe-needle U-100 [UltiCare] 0.3 mL 31 gauge x 5/16" syringe See Dose Instructions .ROUTE .MEDSUPPLY Qty: 10 RF: 0 amoxicillin 500 mg capsule 500 mg PO .COMPLEX PRN (Reason: ud) RF: 0 multivitamin [Multiple Vitamins] Tablet 1 tab PO QAM RF: 0 aspirin 81 mg Tablet,Delayed Release (Dr/Ec) 81 mg PO DAILY RF: 0 prednisolone acetate 1 % drops,suspension 0 drp ophthalmic (eye) DAILY RF: 0 bromfenac 0.09 % drops 0 drp ophthalmic (eye) DAILY RF: 0 warfarin 5 mg tablet 7.5 mg PO UD RF: 0 Discharge Orders: Discharge Order (Routine); Ordered 06/06/21 Ordered By: Edgardo Maier/Other Patient Handouts: Managing Type 2 Diabetes, Special Foot Care for Diabetes Admission Data Admit Date/Time: 05/31/21 20:21 Attending Provider: Edgardo Mendez Admit Provider: Aries Barnes Primary Care Provider: Efrain Arroyo III Other Providers: iMke Hankins ; Kev Sanchez ; Masoud Barker ; Momo Kaur Coding Level of Care Code D/C DAY MANAGEMENT <30 MINS Diagnoses Choledocholithiasis K80.50 Gallstones K80.20 Acute cholangitis K83.09 Acute gallstone pancreatitis K85.10 Common bile duct obstruction K83.1 Elevated troponin R77.8 Supratherapeutic INR R79.1 Diabetes mellitus E11.42; Z79.4 Diabetes mellitus type: type 2 Diabetes mellitus fdc insulin use: with manager intermediate use Diabetes mellitus complication status: with neurologic complications Diabetes mellitus complication detail: with polyneuropathy Anticoagulant long-term use Z79.01 Hypertension I10 Paroxysmal atrial fibrillation I48.0 CAD (coronary artery disease) I25.10 Mechanical heart valve present Z95.2 Acute kidney injury N17.9 NSVT (nonsustained ventricular tachycardia) I47.2 Constipation K59.00
--- NOTE | 2021-06-08 06:04 | Electrocardiogram Report ---
Test Reason : Blood Pressure : / mmHG Vent. Rate : 082 BPM Atrial Rate : 082 BPM P-R Int : 000 ms QRS Dur : 210 ms QT Int : 488 ms P-R-T Axes : 000 -78 099 degrees QTc Int : 570 ms Ventricular-paced rhythm Abnormal ECG When compared with ECG of 31-MAY-2021 18:41, Vent. rate has increased BY 13 BPM Confirmed by Bolivar Green ([id number]) on 06/08/2021 6:03:53 AM Referred By: Efrain Arroyo Confirmed By:Bolivar Green
--- NOTE | 2021-06-08 06:09 | Electrocardiogram Report ---
Test Reason : Blood Pressure : / mmHG Vent. Rate : 079 BPM Atrial Rate : 090 BPM P-R Int : 000 ms QRS Dur : 218 ms QT Int : 474 ms P-R-T Axes : 000 -70 105 degrees QTc Int : 543 ms Ventricular-paced rhythm with occasional AV paced complexes Abnormal ECG When compared with ECG of 06-JUN-2021 04:58, Vent. rate has decreased BY 3 BPM Confirmed by Bolivar Green ([id number]) on 06/08/2021 6:09:26 AM Referred By: Efrain Arroyo Confirmed By:Bolivar Green
--- NOTE | 2021-06-10 11:20 | Coding Query ---
CODING QUERY FOR UNCONTROLLED DIABETES To promote full compliance with coding requirements relating to patient care, provider participation is requested in all cases of lather apprentice uncertainty. Please assist us with the question(s) below: Coding Question: The term uncontrolled Diabetes was used throughout the record. To be able to code this diagnosis properly, could you please clarify the diagnosis below: ( ) Uncontrolled Diabetes meaning hypoglycemia ( x ) Uncontrolled Diabetes meaning hyperglycemia ( ) Other (please specify) Principal Diagnosis: "that condition established after study, to be chiefly responsible for occasioning the admission of the patient to the hospital for care." Co-Existing Principal Diagnosis: "when two or more diagnoses equally meet the criteria for principal diagnosis as determined by the circumstances of admission, diagnostic work up, and/or therapy provided, and the Alphabetic Index, Tabular List, or another coding guideline does not provide sequencing direction, any one of the diagnoses may be sequenced first." "When the physician has documented what appears to be a current diagnosis in the body of the record, but has not included the diagnosis in the final diagnostic statement, the physician should be asked whether the diagnosis should be added." (Source Coding [facility] 2 QTR90. p3-4) ZEYNEP
== END 2021-06-06 12:26 | disposition short-term general hospital (02) | DRG 981 ==
LOC: ED 15:28 → SUATTDRO 20:21 → EDINP 20:21 → 2N 06-01 16:40